=== PATIENT | male | born 1940 | race Caucasian/White ===

== ENCOUNTER → 2017-10-17 | Outpatient (CLI) | payer MEDICARE ==
--- NOTE | 2017-10-17 15:04 | XR ---
EXAMINATION TYPE: XR chest 2V DATE OF EXAM: 10/17/2017 COMPARISON: NONE HISTORY: Shortness of breath TECHNIQUE: Frontal and lateral views of the chest are obtained. FINDINGS: Scattered senescent parenchymal changes noted. Hyperinflation compatible with COPD. No evidence for infiltrate. No evidence for atelectasis. Heart size is stable. Mediastinal structures are stable and grossly unremarkable. No evidence for hilar prominence. Degenerative changes dorsal spine. IMPRESSION: 1. No evidence for acute pulmonary disease.
--- NOTE | 2017-10-17 15:10 | XR ---
EXAMINATION TYPE: XR lumbar spine 2 or 3V DATE OF EXAM: 10/17/2017 CLINICAL HISTORY: pain TECHNIQUE: Three views of the lumbar spine are submitted. COMPARISON: None. FINDINGS: There are 5 lumbar type vertebral bodies identified. The lumbar spine shows satisfactory alignment w ithout evidence of acute fracture or dislocation. Vertebral body heights are within normal limits. Moderate to severe degenerative disc space narrowing at L4-5 and L5-S1. Facet joint arthropathy. The overlying soft tissue appears unremarkable. IMPRESSION: No acute fracture or dislocation is seen in the lumbar spine. ICD 10 NO FRACTURE, INITIAL EVALUATION
--- NOTE | 2017-10-17 15:12 | XR ---
EXAMINATION TYPE: XR cervical spine limited DATE OF EXAM: 10/17/2017 CLINICAL HISTORY: pain TECHNIQUE: 3 views of the cervical spine are submitted. COMPARISON: None. FINDINGS: There is satisfactory in alignment without evidence of acute fracture or dislocation. The pre-vertebral soft tissue appears within normal limits. Moderate degenerative narrowing at C5-6 and C6-7. Ventral and dorsal spondylosis. The C1-C2 articulation is unremarkable on the open mouth view. IMPRESSION: No acute fracture or dislocation is seen in the cervical spine.
== END | disposition home or self-care (01) ==
LOC: RADXRMAIN 13:21
PROVIDERS: ATTEND Family Medicine
DX: R52 Pain, unspecified (principal)
CPT/HCPCS: 71046; 72040; 72100

== ENCOUNTER → 2017-10-18 | Outpatient (CLI) | payer MEDICARE ==
--- NOTE | 2017-10-18 12:16 | USB ---
Reason for exam: clinical finding. Indicated problem(s): pain in the left breast. Physical Findings: Nurse did not find any significant physical abnormalities on exam. US Breast LT Left breast ultrasound includes all four quadrants, the retroareolar region and axilla. Finding demonstrates no cystic or solid lesion seen. These results were verbally communicated with the patient and result sheet given to the patient on 10/18/17. ASSESSMENT: Benign, BI-RAD 2 RECOMMENDATION: Clinical management of the left breast. Manage patient on a clinical basis.
== END | disposition home or self-care (01) ==
LOC: RADUSWWP 09:19
PROVIDERS: ATTEND Family Medicine
DX: N64.4 Mastodynia (principal)

== ENCOUNTER 2018-08-11 03:14 | Observation (INO) | payer MEDICARE ==
[2018-08-11] MEDS ORDERED: NITROGLYCERIN SL TABS 0.4 MG TAB SUBLINGUAL PRN (03:17)
--- NOTE | 2018-08-11 03:40 | ED ---
Chest Pain HPI - General Stated Complaint: Hypertension Time Seen by Provider: 08/11/18 03:16 Source: patient, EMS Mode of arrival: EMS Limitations: no limitations - History of Present Illness Initial Comments: Beto is a pleasant 78 yo male with PMH of CAD and CABG who presents to our ED as a transfer via EMS from an outside facility. Patient reports that earlier today he began having a mild headache and feeling some heaviness in his chest E noted his blood pressure is elevated at which time he went to the emergency department for evaluation. At the outside facility patient had a head CT with no acute findings, was given medications in the blood pressure normalized his EKG was nonischemic and his first troponin was negative. Given the patient's significant history it was decided that he should be transferred to our system facility for evaluation by cardiology. Patient reports that his chest heaviness resolved at the outside facility and is not been having any heaviness since that time. He denies any associated shortness of breath diaphoresis or lightheadedness. He does admit to having a mild headache earlier in the day but reports that has resolved as well. - Related Data Home Medications Medication Instructions Recorded Confirmed Aspirin [Adult Low Dose Aspirin EC] 162 mg PO HS 04/08/16 04/11/16 Carvedilol [Coreg] 12.5 mg PO BID 04/08/16 04/08/16 Clopidogrel [Plavix] 75 mg PO DAILY 04/08/16 04/11/16 Ezetimibe/Simvastatin [Vytorin 1 tab PO QAM 04/08/16 04/08/16 10-40 mg Tablet] Insulin Glargine [Lantus] 55 unit SQ QAM 04/08/16 04/11/16 Niacin [Niacin ER] 2,000 mg PO HS 04/08/16 04/08/16 Telmisartan/Hydrochlorothiazid 1 tab PO QAM 04/08/16 04/08/16 [Telmisartan-Hctz 80-12.5 mg Tb] amLODIPine [Norvasc] 10 mg PO QAM 04/08/16 04/08/16 Allergies Allergy/AdvReac Type Severity Reaction Status Date / Time No Known Allergies Allergy Verified 04/08/16 12:50 Review of Systems ROS Statement: Those systems with pertinent positive or pertinent negative responses have been documented in the HPI. ROS Other: All systems not noted in ROS Statement are negative. EKG Findings - EKG Comments: EKG Findings:: EKG obtained at 3:21 AM, rate is 73 rhythm is sinus there is a leftward axis normal intervals, AZ 162, QRS 102, QTc 469. There is an incomplete right bundle branch block. There are no acute ST elevations or depressions there is no evidence of acute ischemia or infarction. Past Medical History Past Medical History: Diabetes Mellitus, Hyperlipidemia, Hypertension History of Any Multi-Drug Resistant Organisms: None Reported Past Surgical History: Coronary Bypass/CABG, Heart Catheterization With Stent Additional Past Surgical History / Comment(s): CABG, 2003. CATARACTS. BILATERAL EYE SURGERY (DIABETIC) Past Anesthesia/Blood Transfusion Reactions: No Reported Reaction Date of Last Stent Placement:: UNK Past Psychological History: No Psychological Hx Reported Smoking Status: Former smoker Past Alcohol Use History: None Reported Past Drug Use History: None Reported General Exam - General Exam Comments Initial Comments: Physical Exam GENERAL: Patient is well-developed and well-nourished. Patient is nontoxic and well- hydrated and is in no distress. HENT: Normocephalic, Atraumatic. EYES: PERRL, EOMI PULMONARY: Unlabored respirations. No audible rales rhonchi or wheezing was noted. CARDIOVASCULAR: There is a regular rate and rhythm without any murmurs gallops or rubs. Well healed mid sternal incision consistent with history of CABG ABDOMEN: Soft and nontender with normal bowel sounds. SKIN: Skin is clear with no lesions or rashes and otherwise unremarkable. : Deferred NEUROLOGIC: Patient is alert and oriented x3. Moving all extremities spontaneously MUSCULOSKELETAL: Normal extremities with adequate strength and full range of motion. No lower extremity swelling or edema. No calf tenderness. PSYCHIATRIC: Normal psychiatric evaluation. 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 ] Respiratory 18 18 Rate Blood Pressure 145/88 152/87 O2 Sat by Pulse 97 97 Oximetry Chest Pain MDM - [facility] Patient care was discussed with transferring physician patient had a thorough cardiac workup at outside facility as well as a head CT Upon arrival patient is asymptomatic, blood pressure is elevated but not critically so Repeat labs were ordered Patient's PCP was paged for admission Patient admitted with consult to cardiology Disposition Clinical Impression: Chest pain Disposition: ADMITTED IP TO THIS HOSP Condition: Stable Is patient prescribed a controlled substance at d/c from ED?: No
[2018-08-11 03:43] LABS: Basophils # (A) 0.1 k/uL (0-0.2); Basophils % (A) 1 %; Eosinophils # (A) 0.2 k/uL (0-0.7); Eosinophils % (A) 2 %; HCT 46.9 % (39.0-53.0); HGB 15.4 gm/dL (13.0-17.5); Lymphocytes # (A) 1.8 k/uL (1.0-4.8); Lymphocytes % (A) 16 %; MCH 27.8 pg (25.0-35.0); MCHC 32.7 g/dL (31.0-37.0); Mean Platelet Volume 7.4; Monocytes # (A) 0.8 k/uL (0-1.0); Monocytes % (A) 7 %; Neutrophils # (A) 8.1 k/uL (1.3-7.7); Neutrophils % (A) 72 %; Platelet Count 288 k/uL (150-450); RBC 5.52 m/uL (4.30-5.90); RDW 13.8 % (11.5-15.5); WBC 11.3 k/uL (3.8-10.6)
[2018-08-11 03:51] LABS: Calcium 9.3 mg/dL (8.4-10.2); Magnesium 2.1 mg/dL (1.6-2.3); Potassium 3.7 mmol/L (3.5-5.1); Total Bilirubin 0.6 mg/dL (0.2-1.3); Total Protein 7.1 g/dL (6.3-8.2)
[2018-08-11 03:59] LABS: INR 0.9 (<1.2); Partial Thromboplastin Time 23.9 sec (22.0-30.0); Prothrombin Time 9.5 sec (9.0-12.0)
[2018-08-11 04:16] LABS: Creatine Kinase MB 1.3 ng/mL (0.0-2.4); Troponin I 0.029 ng/mL (0.000-0.034)
[2018-08-11] MEDS ORDERED: ENALAPRILAT 1.25 MG/ML 1 ML VIAL IVP PRN ×2 (04:32→04:36)
[2018-08-11 04:37] VITALS: BMI 29.5
[2018-08-11 06:45] LABS: Glucose,Whole Blood 120 mg/dL (75-99)
[2018-08-11 11:41] LABS: Creatine Kinase MB 0.8 ng/mL (0.0-2.4)
[2018-08-11] MEDS: INSULIN ASPART (NovoLOG) 100 UNIT/ML VIAL SQ SCH ×4 (11:47→21:07)
[2018-08-11 11:52] LABS: Troponin I 0.04 ng/mL (0.000-0.034)
--- NOTE | 2018-08-11 11:52 | CONS ---
CONSULTATION Mr. Leos is a 78-year-old gentleman who is seen for the cardiac evaluation. The patient's electronic medical records as well as the old charts are reviewed. The patient has a known history of coronary artery disease with coronary artery bypass surgery. He had a cardiac catheterization done in 2016 which showed a patent graft. The patient has not been followed with Dr. Munoz regularly. This patient gives a history that he started having a headache and then he had heaviness in the chest. He went to [facility] where his blood pressure was in the range of 200. He was given medications and the blood pressure stabilized. EKG did not show any acute ischemic changes, but because of his history, patient was transferred over here. He is feeling fairly well. The patient was moderately active physically and he is not having any exertional chest discomfort, usually. PAST MEDICAL HISTORY: Past medical history includes a history of coronary artery bypass surgery in 2004, cardiac catheterization done in 2016. The patient has a history of hypertension, hyperlipidemia, and diabetes. MEDICATIONS: Home medications include amlodipine 10 mg daily. Micardis, niacin, insulin, Vytorin, Coreg and Plavix and baby aspirin. PHYSICAL EXAMINATION: Physical examination in the emergency room here, patient's blood pressure was 152/87 mmHg, oxygen saturation was 97%. HEENT examination is negative. Neck is supple. There is no increase in jugular venous pressure. Both the carotid pulses are felt. There is no bruit. Chest is symmetrical. Heart the PMI is not felt. First and second heart sounds are normal. There is no evidence of any murmur. Lungs are clinically clear to auscultation and percussion. Abdomen is soft. Liver and spleen are not enlarged. Bowel sounds are heard. Extremities: Peripheral pulses are 2+. LABORATORY DATA: EKG shows right bundle branch block with left anterior hemiblock versus old inferior wall myocardial infarction. The patient's initial troponin at the [facility] was normal. First troponin done here is 0.029. The patient's creatinine is 1.10. FINAL IMPRESSION: Hypertension and headache, rule out non ST-segment elevation myocardial infarction. Patient's 1st troponin done here is abnormal. We will add and do serial troponin, if the troponins are suggestive of non ST-segment elevation myocardial infarction, patient will need further evaluation with a cardiac catheterization Thank you for the consultation. MMODL / IJN: [id number] /
[2018-08-11] MEDS: LOSARTAN 50 MG TAB PO SCH (11:53)
[2018-08-11] MEDS: amLODIPine 10 MG TAB PO SCH (11:53)
[2018-08-11] MEDS: CLOPIDOGREL 75 MG TAB PO SCH (11:53)
[2018-08-11] MEDS: CARVEDILOL 12.5 MG TAB PO SCH ×2 (11:53→16:38)
[2018-08-11] MEDS: ATORVASTATIN 20 MG TAB PO SCH (11:53)
[2018-08-11 11:58] LABS: Glucose,Whole Blood 125 mg/dL (75-99)
[2018-08-11] MEDS: HYDROCHLOROTHIAZIDE 12.5 MG CAP PO SCH (12:20)
[2018-08-11] MEDS: EZETIMIBE 10 MG TAB PO SCH (12:20)
--- NOTE | 2018-08-11 14:36 | ECHOF ---
Referral Reason:cp MEASUREMENTS -------- HEIGHT: 175.3 cm WEIGHT: 90.7 kg BP: 149/64 IVSd: 1.2 cm (0.6 - 1.1) LVIDd: 5.3 cm (3.9 - 5.3) LVPWd: 1.1 cm (0.6 - 1.1) EDV(Teich): 135 ml IVSs: 1.5 cm LVIDs: 3.5 cm LVPWs: 1.5 cm ESV(Teich): 50 ml EF(Teich): 63 % %FS: 35 % SV(Teich): 86 ml RVIDd: 3.3 cm (< 3.3) LALs A4C: 6.3 cm LAAs A4C: 21.1 cm LAESV A-L A4C: 60 ml LAESV MOD A4C: 59 ml LALs A2C: 5.3 cm LAAs A2C: 20.0 cm LAESV A-L A2C: 64 ml LAESV MOD A2C: 63 ml LAESV(A-L): 68 ml LAESV Index (A-L): 32.85 ml/m Ao Diam: 3.8 cm (2.0 - 3.7) LA Diam: 3.4 cm (2.7 - 3.8) AV Cusp: 1.7 cm (1.5 - 2.6) EPSS: 0.4 cm MV E Radames: 0.50 m/s MV DecT: 410 ms MV Dec Eastland: 1.2 m/s MV A Radames: 0.64 m/s MV E/A Ratio: 0.79 AV Vmax: 1.29 m/s AV maxP.67 mmHg TR Vmax: 2.07 m/s TR maxP.17 mmHg RAP: 5.00 mmHg RVSP: 22.17 mmHg MV EF SLOPE: 115.99 mm/s (70 - 150) MV EXCURSION: 1.99 cm (> 18.000) FINDINGS -------- Sinus rhythm. This was a technically adequate study. The left ventricular size is normal. There is mild concentric left ventricular hypertrophy. Overa ll left ventricular systolic function is normal with, an EF between 55 - 60 %. The right ventricle is normal in size. LA is midly dilated 29-33ml/m2. The right atrium is normal in size. Aortic valve is trileaflet and is mildly thickened. There is no evidence of aortic regurgitation. There is no evidence of aortic stenosis. The mitral valve leaflets are mildly thickened. There is trace to mild mitral regurgitation. Trace tricuspid regurgitation present. Right ventricular systolic pressure is normal at < 35 mmHg. There is no evidence of pulmonary hypertension. The pulmonic valve was not well visualized. The aortic root size is normal. Normal inferior vena cava with normal inspiratory collapse consistent with estimated right atrial pre ssure of 5 mmHg. There is no pericardial effusion. CONCLUSIONS -------- 1. Sinus rhythm. 2. This was a technically adequate study. 3. The left ventricular size is normal. 4. There is mild concentric left ventricular hypertrophy. 5. Overall left ventricular systolic function is normal with, an EF between 55 - 60 %. 6. The right ventricle is normal in size. 7. LA is midly dilated 29-33ml/m2. 8. Aortic valve is trileaflet and is mildly thickened. 9. The mitral valve leaflets are mildly thickened. 10. There is trace to mild mitral regurgitation. 11. Trace tricuspid regurgitation present. 12. Right ventricular systolic pressure is normal at < 35 mmHg. 13. There is no evidence of pulmonary hypertension. 14. The pulmonic valve was not well visualized. 15. The aortic root size is normal. 16. There is no pericardial effusion. REGULATORY LEAD: Todd Avila RDCS
[2018-08-11 16:35] LABS: Glucose,Whole Blood 432 mg/dL (75-99)
[2018-08-11 16:54] LABS: Creatine Kinase MB 0.8 ng/mL (0.0-2.4); Troponin I 0.019 ng/mL (0.000-0.034)
[2018-08-11 20:28] LABS: Glucose,Whole Blood 360 mg/dL (75-99)
[2018-08-11] MEDS ORDERED: NON-FORMULARY DRUG (Aspirin [Adult Low Dose Aspirin Ec] 162 MG) PO SCH (21:00)
[2018-08-11 22:14] LABS: Cholesterol 253 mg/dL (<200); HDL Cholesterol 27 mg/dL (40-60); Triglycerides 445 mg/dL (<150)
[2018-08-12 05:53] LABS: Glucose,Whole Blood 303 mg/dL (75-99)
[2018-08-12] MEDS: INSULIN ASPART (NovoLOG) 100 UNIT/ML VIAL SQ SCH ×4 (06:23→20:16)
[2018-08-12] MEDS: CARVEDILOL 12.5 MG TAB PO SCH ×2 (06:23→16:58)
--- NOTE | 2018-08-12 08:11 | HP ---
HISTORY AND PHYSICAL CHIEF COMPLAINT: 78-year-old white male came to the hospital with some chest pain. HISTORY OF PRESENT ILLNESS: 78-year-old white male who stopped taking blood pressure medicines 3 days ago for unclear reasons, possibly that he is depressed per nursing. Anyway he came to hospital due to chest pain and heaviness in his chest. He was found to have a second troponin elevated. Wait for Cardiology and echo reports. Chest x-ray is negative. PAST MEDICAL HISTORY: Hypertension acceleration has been treated with appropriate medications. MEDICATIONS: Home medicines. Please see orders. PAST SURGICAL HISTORY: Surgical history see old chart. ALLERGIES: Allergies see old chart. REVIEW OF SYSTEMS: Fourteen point review of systems negative except for mentioned in HPI. PHYSICAL EXAMINATION: VITAL SIGNS: Reviewed. Cardiovascular S1, S2. LUNGS: Clear. GI soft. Hematology negative Homans. Psych fair mood and affect. NEUROLOGIC: Alert and orient x3. Ophthalmological pupils equal, round, react to light and accommodation. ASSESSMENT: 1. Elevated troponin. 2. Chest tightness. 3. Suspect angina. 4. Hypertension acceleration. 5. Possible depression. 6. Rule out myocardial infarction. Continue current treatment. Cardiology consult. Echo. Hypertension control. MMODL / IJN: [id number] /
[2018-08-12] MEDS: EZETIMIBE 10 MG TAB PO SCH (08:29)
[2018-08-12] MEDS: CLOPIDOGREL 75 MG TAB PO SCH (08:29)
[2018-08-12] MEDS: amLODIPine 10 MG TAB PO SCH (08:29)
[2018-08-12] MEDS: ASPIRIN 325 MG TAB PO SCH (08:29)
[2018-08-12] MEDS: ATORVASTATIN 20 MG TAB PO SCH (08:29)
[2018-08-12] MEDS: HYDROCHLOROTHIAZIDE 12.5 MG CAP PO SCH (10:09)
[2018-08-12] MEDS: LOSARTAN 50 MG TAB PO SCH (10:09)
[2018-08-12] MEDS ORDERED: INSULIN ASPART (NovoLOG) 100 UNIT/ML VIAL SQ ONE (11:15)
[2018-08-12 11:31] LABS: Glucose,Whole Blood 504 mg/dL (75-99)
[2018-08-12] MEDS: INSULIN DETEMIR (LEVEMIR) 100 UNIT/ML SYR SQ SCH (11:49)
[2018-08-12] MEDS ORDERED: ASPIRIN 325 MG TAB PO STA (12:30)
[2018-08-12] MEDS ORDERED: NITROGLYCERIN SL TABS 0.4 MG TAB SUBLINGUAL PRN (12:30)
[2018-08-12] MEDS ORDERED: SODIUM CHLORIDE 0.9% 1,000 ML in EMPTY BAG 1 BAG IV ONE (12:30)
[2018-08-12] MEDS ORDERED: ALPRAZolam 0.5 MG TAB PO PRN (12:30)
[2018-08-12] MEDS ORDERED: ATORVASTATIN 80 MG TAB PO STA (12:30)
[2018-08-12] MEDS ORDERED: ALPRAZolam 0.25 MG TAB PO PRN (12:30)
--- NOTE | 2018-08-12 14:23 | P.PN ---
Subjective Progress Note Date: 08/12/18 This is a 78-year-old gentleman seen in consultation yesterday by Dr. VC Elizondo. He had a cardiac catheterization performed in 2016 which revealed a patent graft, he gives history that he's been having intermittent chest heaviness. His EKG did not reveal any ischemic change but because of his history he was transferred here. Patient does have history of hypertension, hyperlipidemia, diabetes. He was noted to have mild abnormality in his troponins. For this reason patient was advised to undergo cardiac catheterization, the risks and benefits were explained to the patient and his in detail, this will be performed tomorrow by Dr. Glasgow. Blood pressure 128/60 with a heart rate in the 50s, 97% on room air. Objective - Vital Signs Vital signs: Vital Signs Temp 97.1 F L 08/12/18 08:00 Pulse 56 L 08/12/18 12:00 Resp 18 08/12/18 12:00 BP 129/69 08/12/18 12:00 Pulse Ox 97 08/12/18 12:00 Intake & Output 08/11/18 08/12/18 08/12/18 18:59 06:59 18:59 Intake Total 240 480 Balance 240 480 Intake: Oral 240 480 Other: Voiding Method Toilet Toilet Urinal # Voids 1 - Exam PHYSICAL EXAMINATION: GENERAL: 78-year-old gentleman in no acute distress at the time of my examination HEENT: Head is atraumatic, normocephalic. Pupils equal, round. Sclera anicteric. Conjunctiva are clear. Mucous membranes of the mouth are moist. Neck is supple. There is no elevated jugular venous pressure.] bruit is heard. HEART EXAMINATION: Heart S1, S2 normal. No murmur or gallop heard. CHEST EXAMINATION: Lungs are clear to auscultation and precussion. No chest wall tenderness is noted on palpation or with deep breathing. ABDOMEN: Soft, nontender. Bowel sounds are heard. No organomegaly noted. EXTREMITIES: 2+ peripheral pulses with no evidence of peripheral edema and no calf tenderness noted. NEUROLOGIC patient is awake, alert and oriented 3 . . - Labs CBC & Chem 7: 08/11/18 03:30 08/11/18 03:30 Labs: Abnormal Lab Results - Last 24 Hours (Table) 08/11/18 08/11/18 08/11/18 Range/Units 03:30 15:59 16:14 D-Dimer 0.76 H (<0.60) mg/L FEU POC Glucose (mg/dL) 432 H (75-99) mg/dL Triglycerides 445 H (<150) mg/dL Cholesterol 253 H (<200) mg/dL HDL Cholesterol 27 L (40-60) mg/dL 08/11/18 08/12/18 08/12/18 Range/Units 20:27 05:51 11:09 D-Dimer (<0.60) mg/L FEU POC Glucose (mg/dL) 360 H 303 H 504 H (75-99) mg/dL Triglycerides (<150) mg/dL Cholesterol (<200) mg/dL HDL Cholesterol (40-60) mg/dL Assessment and Plan Plan: Assessment and plan #1 hypertension #2 possible non-Q-wave myocardial infarction. Patient will be scheduled to undergo cardiac catheterization tomorrow with Dr. Glasgow. #3 known history of coronary artery disease with prior bypass surgery #4 hypertension #5 diabetes #6 hyperlipidemia Plan Cardiac catheterization tomorrow with Dr. Glasgow. Further recommendations will be based on these findings and patient's clinical course. DNP note has been reviewed, I agree with a documented findings and plan of care. Patient was seen and examined.
[2018-08-12 16:24] LABS: Glucose,Whole Blood 252 mg/dL (75-99)
--- NOTE | 2018-08-12 18:35 | PN ---
PROGRESS NOTE SUBJECTIVE: This is a white male who came in with elevated troponin and chest pain. He is much better. His blood pressure is under better control. Sugar is up to 500 today. He has not been on his insulin in a few days. One out of three troponins was high. Dr. Munoz apparently is going to do a heart catheterization on him as he has a history of heart disease. Diabetes will continue to be controlled with current medicines. CARDIOVASCULAR: S1, S2. LUNGS: Transmitted upper sounds. GI: Soft. HEMATOLOGY: Negative Homans. 45, cholesterol 253, HDL 27. ASSESSMENT: 1. Unstable angina. 2. Elevated troponin. 3. Hypertension acceleration, doubt myocardial infarction after normal echo. 4. Diabetes. 5. Dyslipidemia. Cardiac catheterization and possible discharge home. Insulin and blood pressure medicines have been ordered. MMODL / IJN: [id number] /
[2018-08-12 20:41] LABS: Glucose,Whole Blood 254 mg/dL (75-99)
[2018-08-13] MEDS: ATORVASTATIN 20 MG TAB PO SCH (05:22)
[2018-08-13] MEDS: ASPIRIN 325 MG TAB PO SCH (05:22)
[2018-08-13 05:35] LABS: Glucose,Whole Blood 310 mg/dL (75-99)
[2018-08-13] MEDS: INSULIN ASPART (NovoLOG) 100 UNIT/ML VIAL SQ SCH ×4 (06:35→21:09)
[2018-08-13] MEDS: CARVEDILOL 12.5 MG TAB PO SCH ×2 (06:35→17:34)
[2018-08-13] MEDS: LOSARTAN 50 MG TAB PO SCH (06:36)
[2018-08-13] MEDS: CLOPIDOGREL 75 MG TAB PO SCH (06:36)
[2018-08-13] MEDS: EZETIMIBE 10 MG TAB PO SCH (06:36)
[2018-08-13] MEDS: amLODIPine 10 MG TAB PO SCH (06:36)
[2018-08-13] MEDS ORDERED: VERAPAMIL 2.5 MG/ML 2 ML AMP ONE (07:30)
[2018-08-13] MEDS ORDERED: HEPARIN SODIUM 1,000 UN/ML (10ML VL) ONE (07:30)
[2018-08-13] MEDS ORDERED: LIDOCAINE 1% INJ 10MG/ML (20 ML MDV) ONE (07:30)
[2018-08-13] MEDS ORDERED: MIDAZOLAM 2 MG/2 ML VIAL IVP ONE (08:09)
[2018-08-13] MEDS ORDERED: LIDOCAINE 1% INJ 10MG/ML (20 ML MDV) SQ ONE (08:12)
[2018-08-13] MEDS ORDERED: IV FLUID CONTINUATION 1,000 ML IV ONE (08:25)
[2018-08-13] MEDS ORDERED: IOPAMIDOL-370 125ML BTL INJ ONE (08:37)
[2018-08-13] MEDS ORDERED: RX INFO: IV CONTRAST WAS GIVEN 1 EACH MISC MISCELLANE PRN (08:40)
[2018-08-13] MEDS ORDERED: SODIUM CHLORIDE 0.9% 1,000 ML IV SCH (08:45)
[2018-08-13] MEDS: HYDROCHLOROTHIAZIDE 12.5 MG CAP PO SCH (09:23)
[2018-08-13] MEDS: INSULIN DETEMIR (LEVEMIR) 100 UNIT/ML SYR SQ SCH (09:23)
--- NOTE | 2018-08-13 09:27 | CC ---
CARDIAC CATHETERIZATION REPORT DATE OF SERVICE: August 13, 2018 PERFORMING PHYSICIAN: Lukasz Munoz MD, cork wirer. PROCEDURE PERFORMED: 1. Selective left and right coronary angiogram. 2. GRANT to LAD angiogram. 3. SVG to diagonal angiogram. 4. SVG to OM angiogram. 5. SVG to RCA angiogram. 6. Left heart catheterization. 7. Selective right common iliac artery angiogram. 8. Gradient measurement across the right common iliac artery. INDICATION: This is a pleasant 78-year-old gentleman who has known history of coronary artery disease with the last heart catheterization in 2016 showing severe triple-vessel coronary artery disease with patent GRANT to LAD, patent SVG to diagonal, patent SVG to OM, and patent SVG to RCA. He presented to the hospital complaining of chest discomfort and was seen by Dr. Elizondo who recommended proceeding with a heart catheterization giving his symptoms of chest discomfort, which was quite concerning for angina. APPROACH: Right common femoral artery. COMPLICATION: None. LEVEL OF SEDATION: Moderate with sedation length of 28 minutes. PROCEDURE DESCRIPTION: After obtaining an informed consent, the patient was brought to the cardiac tree tapping laborer. The right common femoral artery was cannulated using micropuncture technique, the micropuncture wire passed easily then I placed a 6-Moroccan sheath 11 cm in the right common iliac artery. I did have hard time advancing J-wire across the right common iliac artery by its ostium and I was able to cross it using a Glidewire 0.035. After that, I did exchange my 11 cm 6-Moroccan sheath into 23 cm 6-Moroccan sheath using 0.035 Glidewire because I had a hard time advancing JL4 across the ostial of the right common iliac artery. After that I did selective left and right coronary angiogram using JL4 and JR4 catheters. GRANT to LAD angiogram, SVG to diagonal angiogram, SVG to RCA angiogram, and SVG to OM angiogram, were performed using the JR4 catheter. Left heart catheterization was performed using JR4 catheter which flipped into the LV then I did pullback across aortic valve. Finally I did selective right common iliac artery angiogram and gradient measurement across the right common iliac artery by the end of the procedure. SELECTIVE CORONARY ANGIOGRAM: 1. The left main appeared to be heavily calcified with critical disease distally. It bifurcates into left circumflex and left anterior descending artery. 2. The left circumflex is a large caliber vessel. It is a nondominant vessel. The left circumflex gives rise into a large OM in the midportion, which seems to be subtotally occluded. The left circumflex continues after that as a small-caliber vessel in the AV groove. 3. The LAD is 100% occluded by its ostium. 4. The RCA has a critical disease in the mid and distal portion. CORONARY BYPASS ANGIOGRAM: 1. The GRANT to LAD is patent. The LAD distal to the GRANT anastomosis has a lesion appeared to be in the range of 50%. 2. The SVG to diagonal is patent. 3. SVG to OM is patent. 4. SVG to RCA is patent. HEMODYNAMICS: The left ventricular end-diastolic pressure was around 8 mmHg without significant gradient across the aortic valve. SELECTIVE ILIAC ANGIOGRAM: The selective right iliac angiogram was performed in the MADRID projection and using a power injection. The ostial of the right common iliac artery has a lesion appeared to be in the range of 99%. The gradient was 57 mmHg. CONCLUSION: 1. Severe triple-vessel coronary artery disease. 2. Patent GRANT to LAD. The LAD distal to the GRANT anastomosis has 50% disease. 3. Patent SVG to diagonal. 4. Patent SVG to OM. 5. Patent SVG to RCA. 6. Critical disease involving the right ostial of the right common iliac artery. POSTPROCEDURE MANAGEMENT: 1. At this point maximize medical treatment. 2. IRRIGATION EQUIPMENT MECHANIC of the right common iliac artery if the patient does have symptoms of intermittent claudication. MMODL / IJN: [id number] /
--- NOTE | 2018-08-13 09:27 | LTR ---
August 13, 2018 Re: Beto Leos Dear Dr. Moore: Mr. Beto Leos underwent a heart catheterization and that revealed severe triple- vessel coronary artery disease, but patent bypasses. I did recommend maximized medical treatment and follow up with the patient. Thank you for allowing us to participate in his care and please do not hesitate to call if you have any question or concern. Sincerely, MD GEORGE Edwards / DAGOBERTO: [id number] /
[2018-08-13 11:38] LABS: Glucose,Whole Blood 237 mg/dL (75-99)
[2018-08-13 17:31] LABS: Glucose,Whole Blood 393 mg/dL (75-99)
[2018-08-13 21:08] LABS: Glucose,Whole Blood 236 mg/dL (75-99)
--- NOTE | 2018-08-13 23:48 | PN ---
PROGRESS NOTE This patient is a white male who was admitted to the hospital for catheterization which showed normal stents, normal bypass grafts without any significant obstruction to the patent bypass grafts. There was some question if he had some obstruction in his right leg. He is cleared for discharge for medical management of his triple-vessel disease due to patent anastomoses. He possibly has critical disease of the right ostium of the right common iliac artery. If he gets symptoms as an outpatient, he might get a thrombectomy of the right leg down the road if he has any intermittent claudication. Otherwise we will continue to monitor him. Discharge home in the morning. MMODL / IJN: [id number] /
[2018-08-14] MEDS: INSULIN ASPART (NovoLOG) 100 UNIT/ML VIAL SQ SCH (06:31)
[2018-08-14] MEDS: CARVEDILOL 12.5 MG TAB PO SCH (06:37)
[2018-08-14 06:45] LABS: Glucose,Whole Blood 95 mg/dL (75-99)
[2018-08-14 07:43] VITALS: BP 144/68; PULSE 58; RESP 14; TEMP 98.2
[2018-08-14] MEDS: LOSARTAN 50 MG TAB PO SCH (08:05)
[2018-08-14] MEDS: ATORVASTATIN 20 MG TAB PO SCH (08:05)
[2018-08-14] MEDS: ASPIRIN 325 MG TAB PO SCH (08:05)
[2018-08-14] MEDS: EZETIMIBE 10 MG TAB PO SCH (08:05)
[2018-08-14] MEDS: amLODIPine 10 MG TAB PO SCH (08:06)
[2018-08-14] MEDS: HYDROCHLOROTHIAZIDE 12.5 MG CAP PO SCH (08:06)
[2018-08-14] MEDS: CLOPIDOGREL 75 MG TAB PO SCH (08:06)
[2018-08-14] MEDS: INSULIN DETEMIR (LEVEMIR) 100 UNIT/ML SYR SQ SCH (08:32)
--- NOTE | 2018-08-22 22:00 | DS ---
DISCHARGE SUMMARY DATE OF ADMISSION: 08/11/2018 DATE OF DISCHARGE: 08/14/2018 DISCHARGE MEDICATIONS: 1. Januvia 100 mg daily. 2. Singulair 10 mg daily. 3. Namenda 10 mg daily. 4. Levemir 53 units subcutaneously daily. 5. Hygroton 25 mg daily. 6. Xanax 0.25 q.6 hours. 7. Amlodipine 10 mg daily. 8. Aspirin 325 daily. 9. Lipitor 20 mg daily. 10.Carvedilol 12.5 b.i.d. 11.Plavix 75 mg daily. 12.Zetia 10 mg daily. 13.Cozaar 150 daily. 14.Nitroglycerin sublingually daily. DISCHARGE DIAGNOSES: 1. Hypertension acceleration. 2. Atypical chest pain. Heart catheterization was performed. He had a possible non-Q-wave myocardial infarction, although I do not believe he did have one. Heart catheterization showed no ischemic disease. He had severe hypertensive acceleration with some hypertensive encephalopathy, diabetes mellitus. Patient is clear once medications were reviewed and altered. His diabetes is under better control. Home medications adjusted. He was discharged home, cleared by Cardiology. MMODL / IJN: [id number] /
== END 2018-08-14 10:05 | disposition home or self-care (01) ==
LOC: EC 03:14 → 1SOBS 03:21 → INTOOBSV 13:16 → OBSVTOIN 13:16 → 3SCARD 13:48 → UNDODISIN 08-14 10:05
PROVIDERS: ADMIT Family Medicine; ATTEND Family Medicine
PROC: B2111ZZ Fluoroscopy of Multiple Coronary Arteries using Low Osmolar Contrast (ICD-10-PCS; 2018-08-13)
PROC: B2151ZZ Fluoroscopy of Left Heart using Low Osmolar Contrast (ICD-10-PCS; 2018-08-13)
PROC: B41C1ZZ Fluoroscopy of Pelvic Arteries using Low Osmolar Contrast (ICD-10-PCS; 2018-08-13)
PROC: 4A023N7 Measurement of Cardiac Sampling and Pressure, Left Heart, Percutaneous Approach (ICD-10-PCS; principal; 2018-08-13 07:51)
PROC: B2131ZZ Fluoroscopy of Multiple Coronary Artery Bypass Grafts using Low Osmolar Contrast (ICD-10-PCS; 2018-08-13 07:51)
DX: I25.110 Atherosclerotic heart disease of native coronary artery with unstable angina pectoris (principal); I25.82 Chronic total occlusion of coronary artery; E11.9 Type 2 diabetes mellitus without complications; E78.5 Hyperlipidemia, unspecified; I10 Essential (primary) hypertension; I67.4 Hypertensive encephalopathy; R77.8 Other specified abnormalities of plasma proteins; Z79.02 Long term (current) use of antithrombotics/antiplatelets; Z79.4 Long term (current) use of insulin; Z79.82 Long term (current) use of aspirin; Z79.899 Other long term (current) drug therapy; Z87.891 Personal history of nicotine dependence; Z95.1 Presence of aortocoronary bypass graft; Z95.5 Presence of coronary angioplasty implant and graft
CPT/HCPCS: 99285; 94760 ×2; 93005; 93306; 93459; 75710; 85379; 83880; 80061; 80053; 82550; 82553; 83735; 84484; 85025; 85610; 85730; G0378 ×5; C1769 ×3; C1894 ×2; J2250; J2001; Q9967

== ENCOUNTER 2018-09-28 07:37 | Day surgery (SDC) | payer MEDICARE ==
[2018-09-27 09:35] VITALS: BMI 26.6
[~2018-09-28 07:37] MED LIST: SODIUM CHLORIDE 0.9% 1,000 ML in EMPTY BAG 1 BAG IV ONE
[2018-09-28] MEDS ORDERED: ASPIRIN 325 MG TAB PO ONE (08:00)
[2018-09-28] MEDS: amLODIPine 5 MG TAB PO STA ×2 (08:05→08:21)
[2018-09-28 08:10] LABS: Glucose,Whole Blood 78 mg/dL (75-99)
[2018-09-28] MEDS ORDERED: CARVEDILOL 12.5 MG TAB PO STA (08:13)
[2018-09-28] MEDS ORDERED: LOSARTAN 50 MG TAB PO STA (08:13)
[2018-09-28 08:16] LABS: Basophils # (A) 0.1 k/uL (0-0.2); Basophils % (A) 0 %; Eosinophils # (A) 0.2 k/uL (0-0.7); Eosinophils % (A) 2 %; HCT 40.7 % (39.0-53.0); HGB 13.5 gm/dL (13.0-17.5); Lymphocytes # (A) 1.2 k/uL (1.0-4.8); Lymphocytes % (A) 9 %; MCH 27.3 pg (25.0-35.0); MCHC 33.2 g/dL (31.0-37.0); MCV 82.2 fL (80.0-100.0); Mean Platelet Volume 9.3; Monocytes # (A) 1.1 k/uL (0-1.0); Monocytes % (A) 8 %; Neutrophils # (A) 10.5 k/uL (1.3-7.7); Neutrophils % (A) 78 %; Platelet Count 276 k/uL (150-450); RBC 4.94 m/uL (4.30-5.90); RDW 15.1 % (11.5-15.5); WBC 13.3 k/uL (3.8-10.6)
[2018-09-28 08:25] LABS: Potassium 4.6 mmol/L (3.5-5.1)
[2018-09-28] MEDS ORDERED: MIDAZOLAM 2 MG/2 ML VIAL IV ONE (08:47)
[2018-09-28] MEDS: fentaNYL (PF) 50 MCG/ML 2 ML AMP IV ONE ×2 (08:47→09:21)
[2018-09-28] MEDS ORDERED: LIDOCAINE 1% INJ 10MG/ML (20 ML MDV) SQ ONE (08:52)
[2018-09-28] MEDS ORDERED: IOPAMIDOL-250 100ML BTL INTRAARTER ONE ×2 (09:12→09:45)
[2018-09-28] MEDS ORDERED: IOPAMIDOL-250 50ML BTL INTRAARTER ONE (09:13)
[2018-09-28] MEDS ORDERED: NITROGLYCERIN SL TABS 0.4 MG TAB SUBLINGUAL PRN (09:37)
[2018-09-28] MEDS ORDERED: SODIUM CHLORIDE 0.9% 1,000 ML IV SCH (09:45)
--- NOTE | 2018-09-28 09:56 | IR ---
EXAMINATION TYPE: IR captain/airline pilot femoral popliteal DATE OF EXAM: 09/28/2018 COMPARISON: NONE HISTORY: Fluoroscopy time. Fluoroscopy was provided to the referring clinician.
--- NOTE | 2018-09-28 10:13 | LTR ---
September 28, 2018 Re: Beto Leos Dear Dr. Moore: Mr. Beto Leos underwent successful balloon angioplasty and stenting of the right common iliac artery with good angiographic results. I want to thank you for allowing me to participate in his care and please do not hesitate to call if you have any question or concern. Sincerely, MD GEORGE Edwards / DAGOBERTO: [id number] /
--- NOTE | 2018-09-28 10:28 | AN ---
ANGIOGRAPHY REPORT DATE OF SERVICE: 09/28/2018 PERFORMING PHYSICIAN: Lukasz Munoz MD, Slime Plant Operator. PROCEDURE PERFORMED: 1. Selective right common iliac artery angiogram. 2. Balloon angioplasty of the right common iliac artery using 7 x 30 mm balloon. 3. Successful stenting of the right common iliac artery using a 9 x 30 mm balloon expandable stent with an excellent angiographic result and reduction of stenosis from 99% to 0%. 4. An abdominal aortogram. 5. Bilateral lower extremities runoff. INDICATION: This is a 78-year-old gentleman who was experiencing symptoms of right leg intermittent claudication. He underwent a heart catheterization a few weeks ago for acute non ST elevation myocardial infarction and he was found to have a tight lesion involving the right iliac artery. Because of that, he was brought today to undergo a PATIENT SERVICE SPECIALIST of the right common iliac artery as well as an abdominal aortogram and bilateral lower extremities runoff. APPROACH: Right common femoral artery. COMPLICATION: None LEVEL OF SEDATION: Moderate with sedation length of 40 minutes. PROCEDURE DESCRIPTION: After obtaining an informed consent, the patient was brought to the cardiac lab analyst. The right common femoral artery was cannulated using micropuncture technique, the micropuncture wire passed easily, then I placed a 7-British 23 cm Brite tip sheath in the right common iliac artery. I did selective right common iliac artery angiogram and then I did an abdominal aortogram and bilateral lower extremities runoff using 5-British pigtail catheter which was initially placed at the level of the renal arteries and it was pulled into above the bifurcation of the aorta to right and left common iliac arteries. After that, I did an angioplasty of the right common iliac artery. Please see a separate paragraph for that. SELECTIVE PERIPHERAL ANGIOGRAM: 1. The abdominal aorta appeared to have mild disease only and seems to be calcified. 2. COMMON ILIAC ARTERY: The right common iliac artery is calcified with a critical lesion. The left common iliac artery appeared to be angiographically normal. 3. INTERNAL ILIAC ARTERIES: The right and left internal iliac arteries are patent. 4. EXTERNAL ILIAC ARTERIES: The right and left externals are angiographically normal. 5. COMMON FEMORAL ARTERIES: The right and left common femoral arteries are angiographically normal. 6. PROFUNDA: The right and left profunda are patent. 7. SFA: The right and left SFA are patent. 8. POPLITEAL: The right and left popliteal are patent. 9. BELOW THE KNEE: There are 3 vessel runoff below the knee bilaterally. PATIENT SERVICE SPECIALIST OF THE RIGHT ILIAC ARTERY: Anticoagulation was initiated using heparin and the patient was given 10,000 units of heparin IV. Subsequently, I did cross the critical lesion in the right common iliac artery using a 0.35 [place] Advantage wire. I did balloon angioplasty using 7 mm balloon before I deployed 9 x 27 mm balloon expandable stent where the stent was positioned under fluoroscopy guidance and deployed under 12 atmospheres for 20 seconds with the following angiogram showing excellent angiographic results and reduction of stenosis from 99% to 0%. CONCLUSION: 1. Successful stenting critical lesion in the right common iliac artery with an excellent angiographic results and reduction of stenosis from 99% to 0% using a balloon expandable stent. 2. No residual disease was identified in the lower extremities. POSTPROCEDURE MANAGEMENT: 1. Dual anti-platelet therapy. 2. Risk factors modifications. 3. Follow up with the patient. MMODL / IJN: [id number] /
[2018-09-28 16:43] LABS: Glucose,Whole Blood 147 mg/dL (75-99)
[2018-09-28] MEDS: CARVEDILOL 12.5 MG TAB PO SCH (17:49)
[2018-09-28] MEDS: amLODIPine 5 MG TAB PO SCH (20:02)
[2018-09-28 20:55] VITALS: RESP 18
[2018-09-28 21:21] LABS: Glucose,Whole Blood 209 mg/dL (75-99)
[2018-09-29 05:45] LABS: Glucose,Whole Blood 217 mg/dL (75-99)
[2018-09-29 07:52] VITALS: BP 142/65; PULSE 63; TEMP 98.5
[2018-09-29 07:58] LABS: Basophils # (A) 0.1 k/uL (0-0.2); Basophils % (A) 1 %; Eosinophils # (A) 0.2 k/uL (0-0.7); Eosinophils % (A) 2 %; HCT 38.3 % (39.0-53.0); HGB 12.6 gm/dL (13.0-17.5); Lymphocytes # (A) 1.2 k/uL (1.0-4.8); Lymphocytes % (A) 12 %; MCH 27.9 pg (25.0-35.0); MCV 84.7 fL (80.0-100.0); Mean Platelet Volume 8.1; Monocytes % (A) 9 %; Neutrophils # (A) 7.5 k/uL (1.3-7.7); Neutrophils % (A) 73 %; Platelet Count 252 k/uL (150-450); RBC 4.52 m/uL (4.30-5.90); RDW 14.8 % (11.5-15.5); WBC 10.3 k/uL (3.8-10.6)
[2018-09-29 08:15] LABS: Calcium 8.8 mg/dL (8.4-10.2); Potassium 5.1 mmol/L (3.5-5.1)
[2018-09-29] MEDS: amLODIPine 5 MG TAB PO SCH (08:38)
[2018-09-29] MEDS: CARVEDILOL 12.5 MG TAB PO SCH (08:38)
[2018-09-29] MEDS ORDERED: LINAGLIPTIN 5 MG TABLET PO SCH (09:00)
[2018-09-29] MEDS ORDERED: amLODIPine 10 MG TAB PO SCH (09:00)
[2018-09-29] MEDS ORDERED: ATORVASTATIN 10 MG TAB PO SCH (09:00)
[2018-09-29] MEDS ORDERED: LOSARTAN 50 MG TAB PO SCH (09:00)
[2018-09-29] MEDS ORDERED: INSULIN DETEMIR (LEVEMIR) 100 UNIT/ML SYR SQ SCH (09:00)
[2018-09-29] MEDS ORDERED: CLOPIDOGREL 75 MG TAB PO SCH (09:00)
[2018-09-29] MEDS ORDERED: MEMANTINE 5 MG TAB PO SCH (09:00)
[2018-09-29] MEDS ORDERED: ASPIRIN 325 MG TAB PO SCH (09:00)
[2018-09-29] MEDS ORDERED: DULoxetine HCL 30 MG CAPSULE.DR PO SCH (09:00)
[2018-09-29] MEDS ORDERED: EZETIMIBE 10 MG TAB PO SCH (09:00)
--- NOTE | 2018-09-29 13:02 | DS ---
DISCHARGE SUMMARY ADMISSION DATE: 09/28/2018 DISCHARGE DATE: 09/29/2018 BRIEF HISTORY: This is a 78-year-old gentleman who was admitted to the hospital yesterday and underwent successful balloon angioplasty and stenting of the right common iliac artery using balloon expandable stent with an excellent angiographic results and without any complication. The procedure was performed from the right groin. The right groin is soft and nontender and without any bruises. The patient is going to be discharged home on dual anti-platelet therapy along with a statin and I will follow up with the patient in the office in a week. MMGENEVIEVEL / IJN: [id number] /
== END 2018-09-29 11:45 | disposition home or self-care (01) ==
LOC: CATHCVL 07:37 → 3SCARD 14:03 → CATHCVL 09-29 11:45
PROVIDERS: ATTEND Internal Medicine Interventional Cardiology
DX: I70.8 Atherosclerosis of other arteries (principal); I73.9 Peripheral vascular disease, unspecified; I70.0 Atherosclerosis of aorta; I25.10 Atherosclerotic heart disease of native coronary artery without angina pectoris; I25.2 Old myocardial infarction; I10 Essential (primary) hypertension; E11.9 Type 2 diabetes mellitus without complications; E78.5 Hyperlipidemia, unspecified; F17.210 Nicotine dependence, cigarettes, uncomplicated; I45.10 Unspecified right bundle-branch block; I08.1 Rheumatic disorders of both mitral and tricuspid valves; Z95.1 Presence of aortocoronary bypass graft; Z79.82 Long term (current) use of aspirin; Z79.4 Long term (current) use of insulin; Z79.899 Other long term (current) drug therapy; Z79.02 Long term (current) use of antithrombotics/antiplatelets
CPT/HCPCS: 37221; 75625; 75716; 80048 ×2; 85025 ×2; C1760; C1894 ×2; C1769 ×4; C1725; C1876; J2250; J2001; J3010; J1644; Q9966 ×2

== ENCOUNTER 2021-07-15 19:42 | Inpatient (IN) | payer MEDICARE ==
[2021-07-15] MEDS ORDERED: SODIUM CHLORIDE 0.9% 500 ML 500 ML IV STA (19:59)
--- NOTE | 2021-07-15 20:36 | XR ---
EXAMINATION TYPE: XR chest 1V portable DATE OF EXAM: 07/15/2021 8:28 PM COMPARISON:Multiple radiographs, with the most recent on or 13/10/2017 TECHNIQUE: Frontal view of the chest. CLINICAL INDICATION:Male, 80 years old with history of dyspnea; FINDINGS: Lungs/Pleura: Streaky atelectasis seen within the left midlung, similar prior. There is no evidence o f pleural effusion, focal consolidation, or pneumothorax. Stable right lower lobe nodule. Pulmonary vascularity: Unremarkable. Heart/mediastinum: Cardiomediastinal silhouette is unremarkable. Musculoskeletal: No acute osseous pathology. Other findings: Midline sternotomy wires and surgical clips project over the mediastinum. IMPRESSION: Chronic changes without acute pulmonary process. No significant change from prior.
[2021-07-15] MEDS ORDERED: ACETAMINOPHEN TAB 500 MG TAB PO STA (20:45)
--- NOTE | 2021-07-15 20:48 | ED ---
SOB HPI - General Chief Complaint: Shortness of Breath Stated Complaint: Cough Time Seen by Provider: 07/15/21 19:59 Source: patient, family, RN notes reviewed Mode of arrival: wheelchair Limitations: altered mental status - History of Present Illness Initial Comments: This is an unvaccinated 80-year-old male with a history of cardiac disease, hyperlipidemia, and hypertension. He presents to the emergency department today complaining of ongoing worsening shortness of breath, fever, chills, and generalized weakness over the past 2 weeks. According to the patient's he became much worse over the past 2 days. Patient not eating well. Mild tachypnea noted Generalized weakness, patient does complain of diminished appetite. no changes in vision or hearing, no sore throat or difficulty with speech, no neck pain, no chest pain or shortness of breath, no abdominal pain, no nausea or vomiting, no changes in urination or bowel movements, no numbness or tingling, no extremity pain, no skin rashes or lesions. - Related Data Home Medications Medication Instructions Recorded Confirmed DULoxetine HCL [Cymbalta] 30 mg PO DAILY 09/27/18 07/15/21 amLODIPine [Norvasc] 5 mg PO DAILY 09/27/18 07/15/21 Aspirin EC [Ecotrin Low Dose] 81 mg PO DAILY 07/15/21 07/15/21 Atorvastatin [Lipitor] 40 mg PO HS 07/15/21 07/15/21 Donepezil [Aricept] 5 mg PO DAILY 07/15/21 07/15/21 Dulaglutide [Trulicity] 0.75 mg SQ SA 07/15/21 07/15/21 Insulin Glargine [Lantus Vial] 26 unit SQ AC-SUPPER 07/15/21 07/15/21 Insulin Glargine [Lantus Vial] 32 unit SQ AC-BRKFST 07/15/21 07/15/21 Lisinopril [Prinivil] 10 mg PO DAILY 07/15/21 07/15/21 Memantine [Namenda] 10 mg PO BID 07/15/21 07/15/21 Omeprazole 20 mg PO DAILY 07/15/21 07/15/21 QUEtiapine [SEROquel] 25 mg PO HS 07/15/21 07/15/21 carvediloL [Coreg*] 12.5 mg PO DAILY 07/15/21 07/15/21 Previous Rx's Medication Instructions Recorded Clopidogrel [Plavix] 75 mg PO DAILY tab 08/13/18 Nitroglycerin Sl Tabs [Nitrostat] 0.4 mg SUBLINGUAL Q5M PRN tab 08/13/18 Allergies Allergy/AdvReac Type Severity Reaction Status Date / Time No Known Allergies Allergy Verified 07/15/21 21:29 Review of Systems ROS Statement: Those systems with pertinent positive or pertinent negative responses have been documented in the HPI. ROS Other: All systems not noted in ROS Statement are negative. Past Medical History Past Medical History: Coronary Artery Disease (CAD), Chest Pain / Angina, Diabetes Mellitus, Hyperlipidemia, Hypertension Additional Past Medical History / Comment(s): diverticulosis, mild stm loss, arthritis History of Any Multi-Drug Resistant Organisms: None Reported Past Surgical History: Coronary Bypass/CABG, Heart Catheterization, Heart Catheterization With Stent Additional Past Surgical History / Comment(s): CABG 2003. CATARACTS. BILATERAL EYE SURGERY (DIABETIC) right illiac stent placed by Dr Munoz 09/28/18 Past Anesthesia/Blood Transfusion Reactions: No Reported Reaction Date of Last Stent Placement:: UNK Past Psychological History: Depression Smoking Status: Former smoker Past Alcohol Use History: None Reported Past Drug Use History: None Reported - Past Family History Mother Family Medical History: CVA/TIA, Diabetes Mellitus Father Family Medical History: Coronary Artery Disease (CAD), Myocardial Infarction ([place]) Additional Family Medical History / Comment(s): passed at 42 Brother(s) Family Medical History: Coronary Artery Disease (CAD), Myocardial Infarction ([place]) Additional Family Medical History / Comment(s): 2 brothers young in 40's and 50's General Exam - General Exam Comments Initial Comments: Somewhat ill-appearing 80-year-old male in minimal distress. Patient does not appear to be toxic. No increased work of breathing. SpO2 on room air was 88%. Limitations: altered mental status General appearance: alert, in no apparent distress Head exam: Present: atraumatic, normocephalic, normal inspection Eye exam: Present: normal appearance, PERRL, EOMI. Absent: scleral icterus, conjunctival injection, periorbital swelling ENT exam: Present: normal exam, mucous membranes moist. Absent: normal oropharynx, mucous membranes dry Neck exam: Present: normal inspection. Absent: tenderness, meningismus, full ROM, lymphadenopathy Respiratory exam: Present: respiratory distress, rales. Absent: normal lung sounds bilaterally, wheezes, rhonchi, stridor Cardiovascular Exam: Present: regular rate, normal rhythm, normal heart sounds. Absent: systolic murmur, diastolic murmur, rubs, gallop, clicks GI/Abdominal exam: Present: soft, normal bowel sounds. Absent: distended, tenderness, guarding, rebound, rigid Extremities exam: Present: normal inspection, full ROM, normal capillary refill. Absent: tenderness, pedal edema, joint swelling, calf tenderness Back exam: Present: normal inspection Neurological exam: Present: alert, oriented X3, CN II-XII intact Psychiatric exam: Present: normal affect, normal mood Skin exam: Present: warm, dry, intact, normal color. Absent: rash Course Vital Signs 07/15/21 19:51 Temperature 100.9 F H Pulse Rate 78 Respiratory 28 H Rate Blood Pressure 112/66 O2 Sat by Pulse 88 L Oximetry - Reevaluation(s) Reevaluation #1: 07/15/21 21:43 Patient reevaluated and is improved on 2 L per nasal cannula. Patient COVID-19 positive. First dose of dexamethasone given. Consultation with hospitalist ordered. Medical Decision Making - Medical Decision Making Patient appears to have adequate peripheral profusion. Capillary refill less than 2 seconds. Mild distress. Does not appear to be toxic. Likely COVID-19 given the COVID-19 pandemic. Other infectious etiology is possible to include bacterial pneumonia, viral bronchitis, or other infectious etiology. Case was discussed with the on-call hospitalist physician, Dr. Funez The case was discussed in detail with ED attending physician. Presentation, findings, treatment plan discussed in detail. - Lab Data Result diagrams: 07/15/21 20:30 07/15/21 20:30 Lab Results 07/15/21 07/15/21 07/15/21 Range/Units 20:30 20:30 20:30 WBC 11.7 H (3.8-10.6) k/uL RBC 4.57 (4.30-5.90) m/uL Hgb 13.0 (13.0-17.5) gm/dL Hct 39.9 (39.0-53.0) % MCV 87.3 (80.0-100.0) fL MCH 28.5 (25.0-35.0) pg MCHC 32.6 (31.0-37.0) g/dL RDW 14.0 (11.5-15.5) % Plt Count 374 (150-450) k/uL MPV 8.8 Neutrophils % 85 % Lymphocytes % 4 % Monocytes % 8 % Eosinophils % 0 % Basophils % 0 % Neutrophils # 10.0 H (1.3-7.7) k/uL Lymphocytes # 0.4 L (1.0-4.8) k/uL Monocytes # 0.9 (0-1.0) k/uL Eosinophils # 0.0 (0-0.7) k/uL Basophils # 0.0 (0-0.2) k/uL Sodium 133 L (137-145) mmol/L Potassium 4.7 (3.5-5.1) mmol/L Chloride 103 (98-107) mmol/L Carbon Dioxide 20 L (22-30) mmol/L Anion Gap 10 mmol/L BUN 34 H (9-20) mg/dL Creatinine 1.35 H (0.66-1.25) mg/dL Est GFR (CKD-EPI)AfAm 58 (>60 ml/min/1.73 sqM) Est GFR (CKD-EPI)NonAf 50 (>60 ml/min/1.73 sqM) Glucose 281 H (74-99) mg/dL Plasma Lactic Acid Nic 1.3 (0.7-2.0) mmol/L Calcium 7.9 L (8.4-10.2) mg/dL Magnesium 2.3 (1.6-2.3) mg/dL Total Bilirubin 1.2 (0.2-1.3) mg/dL AST 40 (17-59) U/L ALT 29 (4-49) U/L Alkaline Phosphatase 122 (38-126) U/L Troponin I (0.000-0.034) ng/mL Total Protein 5.8 L (6.3-8.2) g/dL Albumin 3.0 L (3.5-5.0) g/dL Coronavirus (PCR) (Not Detectd) Influenza Type A RNA (Not Detectd) Influenza Type B (PCR) (Not Detectd) 07/15/21 07/15/21 07/15/21 Range/Units 20:30 20:30 20:30 WBC (3.8-10.6) k/uL RBC (4.30-5.90) m/uL Hgb (13.0-17.5) gm/dL Hct (39.0-53.0) % MCV (80.0-100.0) fL MCH (25.0-35.0) pg MCHC (31.0-37.0) g/dL RDW (11.5-15.5) % Plt Count (150-450) k/uL MPV Neutrophils % % Lymphocytes % % Monocytes % % Eosinophils % % Basophils % % Neutrophils # (1.3-7.7) k/uL Lymphocytes # (1.0-4.8) k/uL Monocytes # (0-1.0) k/uL Eosinophils # (0-0.7) k/uL Basophils # (0-0.2) k/uL Sodium (137-145) mmol/L Potassium (3.5-5.1) mmol/L Chloride (98-107) mmol/L Carbon Dioxide (22-30) mmol/L Anion Gap mmol/L BUN (9-20) mg/dL Creatinine (0.66-1.25) mg/dL Est GFR (CKD-EPI)AfAm (>60 ml/min/1.73 sqM) Est GFR (CKD-EPI)NonAf (>60 ml/min/1.73 sqM) Glucose (74-99) mg/dL Plasma Lactic Acid Nic (0.7-2.0) mmol/L Calcium (8.4-10.2) mg/dL Magnesium (1.6-2.3) mg/dL Total Bilirubin (0.2-1.3) mg/dL AST (17-59) U/L ALT (4-49) U/L Alkaline Phosphatase (38-126) U/L Troponin I <0.012 (0.000-0.034) ng/mL Total Protein (6.3-8.2) g/dL Albumin (3.5-5.0) g/dL Coronavirus (PCR) Detected A (Not Detectd) Influenza Type A RNA Not Detected (Not Detectd) Influenza Type B (PCR) Not Detected (Not Detectd) - EKG Data EKG Comments: EKG done at 2155 read by the ED attending physician reveals normal sinus rhythm with a left axis deviation. Rate of 68, normal intervals, no acute ST or T-wave changes. Critical Care Time Critical Care Time: Yes Total Critical Care Time: 31 Critical Care Time: Multiple reassessments, reevaluation patient's response to oxygenation, laboratory investigations, diagnostic studies. Discussion with the internal medicine physician. Discussion with ED attending physician. Disposition Clinical Impression: Acute hypoxemic respiratory failure due to COVID-19, Generalized weakness Disposition: ADMITTED IP TO THIS HOSP Referrals: Mike Ballesteros MD [Primary Care Provider] - 1-2 days
[2021-07-15 20:58] LABS: Basophils % (A) 0 %; Eosinophils % (A) 0 %; HCT 39.9 % (39.0-53.0); Lymphocytes # (A) 0.4 k/uL (1.0-4.8); Lymphocytes % (A) 4 %; MCH 28.5 pg (25.0-35.0); MCHC 32.6 g/dL (31.0-37.0); MCV 87.3 fL (80.0-100.0); Mean Platelet Volume 8.8; Monocytes # (A) 0.9 k/uL (0-1.0); Monocytes % (A) 8 %; Neutrophils % (A) 85 %; Platelet Count 374 k/uL (150-450); RBC 4.57 m/uL (4.30-5.90); WBC 11.7 k/uL (3.8-10.6)
[2021-07-15 21:07] LABS: Calcium 7.9 mg/dL (8.4-10.2); Magnesium 2.3 mg/dL (1.6-2.3); Potassium 4.7 mmol/L (3.5-5.1); Total Bilirubin 1.2 mg/dL (0.2-1.3); Total Protein 5.8 g/dL (6.3-8.2)
[2021-07-15] MEDS ORDERED: DEXAMETHASONE SOD PHOSPHATE 10 MG/ML 1 ML VIAL IVP SCH (21:45)
[2021-07-15] MEDS ORDERED: VANCOMYCIN 1,750 MG in SODIUM CHLORIDE 0.9% 500 ML 500 ML IVPB ONE (22:00)
[2021-07-15] MEDS ORDERED: ACETAMINOPHEN TAB 325 MG TAB PO PRN (22:34)
[2021-07-15] MEDS ORDERED: ALBUTEROL HFA INHALER INHALATION STA (22:34)
[2021-07-15] MEDS: ENOXAPARIN 40 MG/0.4 ML SYRINGE SQ SCH (22:51)
[2021-07-16 00:38] LABS: Glucose,Whole Blood 249 mg/dL (75-99)
--- NOTE | 2021-07-16 01:18 | P.HPIM ---
History of Present Illness H&P Date: 07/16/21 Patient is a 80-year-old male with a PMH of hypertension, hyperkalemia, coronary artery disease, type II DM who was brought into the emergency room by her family members due to gradually worsening shortness of breath. History is obtained from the chart and from the ED staff as the patient was very confused at the time of interview and the family could not be reached via the numbers in the chart. The patient did reportedly been experiencing gradually worsening shortness of breath, fever, chills, and diffuse lethargy and weakness over the past 1-2 weeks which had acutely worsened over the past 2 days. The patient also was noted to have decreased appetite and had appeared to be tachypneic to the family members, which prompted them to bring him to the emergency room. The patient is unvaccinated against COVID 19. In the emergency room, the patient's laboratory evaluation revealed coronavirus PCR positive, sodium 133, BUN 34, creatinine 1.35, and glucose 281. Chest x-ray revealed chronic changes without any acute process with EKG showing normal sinus rhythm at 68 bpm with left axis deviation. The patient was hypoxic in the emergency room presentation with SpO2 88% on room air, afebrile to 100.9F, and tachypneic with 28 respiratory rate. Review of systems: Unable to perform as patient was confused and not answering questions appropriately Physical examination: General: non toxic, no distress, appears at stated age, normal weight Derm: no unusual rashes/lesions no unusual ecchymoses, warm, dry Head: atraumatic, normocephalic, symmetric Eyes: EOMI, no lid lag, anicteric sclera, pupils equal round reactive to light ENT: Nose and ears atraumatic, no thrush, no pharyngeal erythema Neck: No thyromegaly, no cervical lymphadenopathy, trachea midline, supple Mouth: no lip lesion, mucus membranes moist Cardiovascular: S1S2 reg, no murmur, positive posterior tibial pulse bilateral, no edema, capillary refill less than 2 seconds Lungs: CTA bilateral, no rhonchi, no rales , no accessory muscle use Abdominal: soft, nontender to palpation, no guarding, no appreciable organome javed, normal bowel sounds Ext: no gross muscle atrophy, muscle strength 3 out of 5 in all 4 extremities grossly, no contractures, Neuro: CN II-XI grossly intact, light touch intact all 4 extremities, finger to nose within normal limits, Psych: Awake, confused, not answering questions appropriately, oriented only to person and partially to place Assessment/plan Acute hypoxic respiratory failure secondary to COVID-19 pneumonitis -Continue supplemental oxygen -Pulmonary consult -Zinc, melatonin, vitamin C, vitamin D -Monitor inflammatory markers Acute kidney injury, likely secondary to dehydration -Continue with IV fluids Chronic conditions: Type 2 DM, Hypertension, hyperlipidemia -Lispro insulin sliding scale blood glucose monitoring -Check A1c -Continue with home medications DVT prophylaxis -Lovenox The patient is admitted with an anticipated greater than 2 midnight stay for mikie luation of COVID CODE STATUS:Full Code Discussed with: Patient Anticipated discharge date: Unknown Anticipated discharge place: Home Past Medical History Past Medical History: Coronary Artery Disease (CAD), Chest Pain / Angina, Diabetes Mellitus, Hyperlipidemia, Hypertension Additional Past Medical History / Comment(s): diverticulosis, mild stm loss, arthritis History of Any Multi-Drug Resistant Organisms: None Reported Past Surgical History: Coronary Bypass/CABG, Heart Catheterization, Heart Catheterization With Stent Additional Past Surgical History / Comment(s): CABG 2003. CATARACTS. BILATERAL EYE SURGERY (DIABETIC) right illiac stent placed by Dr Munoz 09/28/18 Past Anesthesia/Blood Transfusion Reactions: No Reported Reaction Date of Last Stent Placement:: UNK Past Psychological History: Depression Smoking Status: Former smoker Past Alcohol Use History: None Reported Past Drug Use History: None Reported - Past Family History Mother Family Medical History: CVA/TIA, Diabetes Mellitus Father Family Medical History: Coronary Artery Disease (CAD), Myocardial Infarction ([place]) Additional Family Medical History / Comment(s): passed at 42 Brother(s) Family Medical History: Coronary Artery Disease (CAD), Myocardial Infarction ([place]) Additional Family Medical History / Comment(s): 2 brothers young in 40's and 50's Medications and Allergies Home Medications Medication Instructions Recorded Confirmed Type Clopidogrel [Plavix] 75 mg PO DAILY tab 08/13/18 07/15/21 Rx Nitroglycerin Sl Tabs [Nitrostat] 0.4 mg SUBLINGUAL Q5M PRN tab 08/13/18 07/15/21 Rx DULoxetine HCL [Cymbalta] 30 mg PO DAILY 09/27/18 07/15/21 History amLODIPine [Norvasc] 5 mg PO DAILY 09/27/18 07/15/21 History Aspirin EC [Ecotrin Low Dose] 81 mg PO DAILY 07/15/21 07/15/21 History Atorvastatin [Lipitor] 40 mg PO HS 07/15/21 07/15/21 History Donepezil [Aricept] 5 mg PO DAILY 07/15/21 07/15/21 History Dulaglutide [Trulicity] 0.75 mg SQ SA 07/15/21 07/15/21 History Insulin Glargine [Lantus Vial] 26 unit SQ AC-SUPPER 07/15/21 07/15/21 History Insulin Glargine [Lantus Vial] 32 unit SQ AC-BRKFST 07/15/21 07/15/21 History Lisinopril [Prinivil] 10 mg PO DAILY 07/15/21 07/15/21 History Memantine [Namenda] 10 mg PO BID 07/15/21 07/15/21 History Omeprazole 20 mg PO DAILY 07/15/21 07/15/21 History QUEtiapine [SEROquel] 25 mg PO HS 07/15/21 07/15/21 History carvediloL [Coreg*] 12.5 mg PO DAILY 07/15/21 07/15/21 History Allergies Allergy/AdvReac Type Severity Reaction Status Date / Time No Known Allergies Allergy Verified 07/15/21 21:29 Physical Exam Vitals: Vital Signs Temp Pulse Resp BP Pulse Ox 07/16/21 00:21 97.8 F 65 18 110/70 96 07/15/21 20:55 18 07/15/21 19:51 100.9 F H 78 28 H 112/66 88 L Intake and Output 07/15/21 07/15/21 07/16/21 14:59 22:59 06:59 Other: Weight 81.647 kg Results CBC & Chem 7: 07/15/21 20:30 07/15/21 20:30 Labs: Abnormal Lab Results - Last 24 Hours (Table) 07/15/21 07/15/21 07/15/21 Range/Units 20:30 20:30 20:30 WBC 11.7 H (3.8-10.6) k/uL Neutrophils # 10.0 H (1.3-7.7) k/uL Lymphocytes # 0.4 L (1.0-4.8) k/uL Sodium 133 L (137-145) mmol/L Carbon Dioxide 20 L (22-30) mmol/L BUN 34 H (9-20) mg/dL Creatinine 1.35 H (0.66-1.25) mg/dL Glucose 281 H (74-99) mg/dL POC Glucose (mg/dL) (75-99) mg/dL Calcium 7.9 L (8.4-10.2) mg/dL Total Protein 5.8 L (6.3-8.2) g/dL Albumin 3.0 L (3.5-5.0) g/dL Coronavirus (PCR) Detected A (Not Detectd) 07/16/21 Range/Units 00:35 WBC (3.8-10.6) k/uL Neutrophils # (1.3-7.7) k/uL Lymphocytes # (1.0-4.8) k/uL Sodium (137-145) mmol/L Carbon Dioxide (22-30) mmol/L BUN (9-20) mg/dL Creatinine (0.66-1.25) mg/dL Glucose (74-99) mg/dL POC Glucose (mg/dL) 249 H (75-99) mg/dL Calcium (8.4-10.2) mg/dL Total Protein (6.3-8.2) g/dL Albumin (3.5-5.0) g/dL Coronavirus (PCR) (Not Detectd)
[2021-07-16 01:41] LABS: C Reactive Protein 20.8 mg/dL (<1.0)
[2021-07-16] MEDS: SODIUM CHLORIDE 0.9% 1,000 ML IV SCH ×2 (02:00→12:16)
[2021-07-16 07:18] LABS: Glucose,Whole Blood 237 mg/dL (75-99)
[2021-07-16] MEDS: CHOLECALCIFEROL 125 MCG (5000 IU) TABLET PO SCH (07:43)
[2021-07-16] MEDS: INSULIN ASPART (NovoLOG) 100 UNIT/ML VIAL SQ SCH ×4 (07:43→20:16)
[2021-07-16] MEDS: ZINC SULFATE 220 MG CAP PO SCH (07:43)
[2021-07-16] MEDS: ASCORBIC ACID 500 MG TAB PO SCH (07:43)
[2021-07-16] MEDS: dexAMETHasone 2 MG TAB PO SCH (07:43)
[2021-07-16 09:21] LABS: Basophils % (A) 0 %; Eosinophils % (A) 0 %; HCT 40.7 % (39.0-53.0); Lymphocytes # (A) 0.5 k/uL (1.0-4.8); Lymphocytes % (A) 7 %; MCH 28.4 pg (25.0-35.0); MCHC 31.9 g/dL (31.0-37.0); MCV 88.9 fL (80.0-100.0); Mean Platelet Volume 8.6; Monocytes # (A) 0.5 k/uL (0-1.0); Monocytes % (A) 6 %; Neutrophils % (A) 84 %; Platelet Count 362 k/uL (150-450); RBC 4.58 m/uL (4.30-5.90); RDW 13.9 % (11.5-15.5); WBC 7.2 k/uL (3.8-10.6)
[2021-07-16 09:55] LABS: Albumin 2.7 g/dL (3.5-5.0); Calcium 8.1 mg/dL (8.4-10.2); Magnesium 2.4 mg/dL (1.6-2.3); Potassium 4.4 mmol/L (3.5-5.1); Total Protein 5.6 g/dL (6.3-8.2)
[2021-07-16 10:33] LABS: C Reactive Protein 20.5 mg/dL (<1.0)
[2021-07-16 11:33] LABS: Glucose,Whole Blood 255 mg/dL (75-99)
[2021-07-16] MEDS: CLOPIDOGREL 75 MG TAB PO SCH (12:15)
[2021-07-16] MEDS: amLODIPine 5 MG TAB PO SCH (12:15)
[2021-07-16] MEDS: DONEPEZIL 5 MG TAB PO SCH (12:15)
[2021-07-16] MEDS: carvediloL 12.5 MG TAB PO SCH (12:15)
[2021-07-16] MEDS: MEMANTINE 10 MG TAB PO SCH ×2 (12:15→20:16)
[2021-07-16] MEDS: ASPIRIN 81 MG PO SCH (12:15)
--- NOTE | 2021-07-16 12:45 | P.CNPUL ---
History of Present Illness Consult date: 07/16/21 Requesting physician: Eboni Funez Reason for consult: dyspnea Chief complaint: Shortness of breath History of present illness: This 80-year-old white male patient with advanced dementia, who is a very poor historian, and prior history of cardiac disease, hyperlipidemia, hypertension, previous history of coronary artery bypass grafting surgery, diabetes mellitus, hyperlipidemia, former smoker, peripheral vascular disease with prior history of right iliac stent placement, and depression who was brought into the hospital on 07/15/2021 for evaluation of shortness of breath according to the ED documentation. Patient is very confused, he is not able to tell me what brought him to the hospital. However does not appear to be in any acute distress, he states his brought him in. He is only oriented 1, he did not know he was in the hospital, he is not able to tell me the exact date. He seems to have delayed verbal response to questioning, but he is awake, he is trying to feed himself. He denies being short of breath, he states that he does cough all the time. Denies any chest discomfort. Is currently on 2 L of oxygen his pulse ox is 96%, according to the ED documentation patient was complaining of ongoing worsening shortness of breath, fever chills, generalized weakness over the past 2 weeks, according to the patient was diagnosed with COVID-19 on 07/08/2021, he is non-vaccinated for COVID-19, his breathing became much worse, he was very weak and unable to walk, she was not eating well. Chest x-ray in emergency department showed chronic changes without acute pulmonary process. COVID-19 PCR was positive, influenza A and B PCR were negative, his white count was 11.7, hemoglobin was 13.0, fibrinogen level was 844, d-dimer was 1.5, sodium is 133, potassium is 4.7, CO2 is 20, BUN is 34 creatinine is 1.35, lactic acid was 1.3. LFTs are within normal limits, LDH was 937, CRP was 20.8, troponin was less than 0.012, pro calcitonin level was 0.55. Patient is outside the window for Remdesivir, he was started on Decadron 6 mg daily, he is on prophylactic Lovenox 40 mg daily, he was given gentle IV hydration with 500 mL IV fluid bolus in the emergency department, his maintenance IV fluids infusing at rate of 75 ML per hour. Blood culture has been sent and is pending. Patient did have a low- grade fever overnight with a temp of 100.9F. He is afebrile this morning, his appetite is clean, he is feeding himself. Lung sounds reveal scattered crackles, no rhonchi, no wheezing, patient denies any chest pain, abdomen is soft, denies any nausea, no diarrhea. Review of Systems All systems: negative Constitutional: Denies chills, Denies fever Eyes: denies blurred vision, denies pain Ears, nose, mouth and throat: Denies headache, Denies sore throat Cardiovascular: Denies chest pain, Denies shortness of breath Respiratory: Reports dyspnea, Denies cough Gastrointestinal: Denies abdominal pain, Denies diarrhea, Denies nausea, Denies vomiting Musculoskeletal: Denies myalgias Integumentary: Denies pruritus, Denies rash Neurological: Denies numbness, Denies weakness Psychiatric: Denies anxiety, Denies depression Endocrine: Denies fatigue, Denies weight change Past Medical History Past Medical History: Coronary Artery Disease (CAD), Chest Pain / Angina, Dementia, Diabetes Mellitus, Eye Disorder, GERD/Reflux, Hyperlipidemia, Hypertension, Memory Impairment, Vascular Disorder Additional Past Medical History / Comment(s): Devante states pt tested covid + either 07/05/21 or 07/06/21 at [facility]. 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, PVD/intermittent claudication/R leg surgery with stent, arthritis bilateral hands, chronic back pain/DDD, diverticular disease History of Any Multi-Drug Resistant Organisms: None Reported Past Surgical History: Coronary Bypass/CABG, Heart Catheterization, Heart Catheterization With Stent Additional Past Surgical History / Comment(s): 2003 CABG 4 vessel, PCI with stent in [place] approximately 15 yrs ago, 2019 R iliac PTBA/stent, bilateral eye surgery for "diabetic eye problem" Past Anesthesia/Blood Transfusion Reactions: No Reported Reaction Date of Last Stent Placement:: approximately 2006 Smoking Status: Former smoker - Past Family History Mother Family Medical History: CVA/TIA, Diabetes Mellitus Father Family Medical History: Coronary Artery Disease (CAD), Myocardial Infarction ([place]) Additional Family Medical History / Comment(s): passed at 42 from [place] Brother(s) Family Medical History: Coronary Artery Disease (CAD), Myocardial Infarction ([place]) Additional Family Medical History / Comment(s): 2 brothers young in 40's and 50's from MIs. Medications and Allergies Home Medications Medication Instructions Recorded Confirmed Type Clopidogrel [Plavix] 75 mg PO DAILY tab 08/13/18 07/15/21 Rx Nitroglycerin Sl Tabs [Nitrostat] 0.4 mg SUBLINGUAL Q5M PRN tab 08/13/18 07/15/21 Rx DULoxetine HCL [Cymbalta] 30 mg PO DAILY 09/27/18 07/15/21 History amLODIPine [Norvasc] 5 mg PO DAILY 09/27/18 07/15/21 History Aspirin EC [Ecotrin Low Dose] 81 mg PO DAILY 07/15/21 07/15/21 History Atorvastatin [Lipitor] 40 mg PO HS 07/15/21 07/15/21 History Donepezil [Aricept] 5 mg PO DAILY 07/15/21 07/15/21 History Dulaglutide [Trulicity] 0.75 mg SQ SA 07/15/21 07/15/21 History Insulin Glargine [Lantus Vial] 26 unit SQ AC-SUPPER 07/15/21 07/15/21 History Insulin Glargine [Lantus Vial] 32 unit SQ AC-BRKFST 07/15/21 07/15/21 History Lisinopril [Prinivil] 10 mg PO DAILY 07/15/21 07/15/21 History Memantine [Namenda] 10 mg PO BID 07/15/21 07/15/21 History Omeprazole 20 mg PO DAILY 07/15/21 07/15/21 History QUEtiapine [SEROquel] 25 mg PO HS 07/15/21 07/15/21 History carvediloL [Coreg*] 12.5 mg PO DAILY 07/15/21 07/15/21 History Allergies Allergy/AdvReac Type Severity Reaction Status Date / Time No Known Allergies Allergy Verified 07/15/21 21:29 Physical Exam Vitals: Vital Signs Temp Pulse Pulse Resp BP BP Pulse Ox 07/16/21 10:10 97.7 F 70 18 140/61 96 07/16/21 04:40 96 07/16/21 04:39 97.6 F 60 15 132/61 07/16/21 04:32 22 07/16/21 03:15 99.9 F H 07/16/21 03:00 99.0 F 66 22 128/60 96 07/16/21 00:21 97.8 F 65 18 110/70 96 07/15/21 20:55 18 07/15/21 19:51 100.9 F H 78 28 H 112/66 88 L Intake and Output 07/15/21 07/16/21 07/16/21 22:59 06:59 14:59 Intake Total 150 780 Balance 150 780 Intake: IV 150 Sodium Chloride 0.9% 1, 150 000 ml @ 75 mls/hr IV . [id number] [facility] Rx#:[id number] Intake, IV Titration 600 Amount Sodium Chloride 0.9% 1, 600 000 ml @ 75 mls/hr IV . [id number] [facility] Rx#:[id number] Oral 180 Other: Voiding Method Diaper Weight 81.647 kg 81.647 kg GENERAL EXAM: Alert, confused 80-year-old white male, only oriented to self, resting comfortably, currently on 2 L of oxygen and a pulse ox of 96%, patient is a poor historian related to his underlying history of dementia, but appears comfortable in no apparent distress. HEAD: Normocephalic/atraumatic. EYES: Normal reaction of pupils, equal size. Conjunctiva pink, sclera white. NOSE: Clear with pink turbinates. THROAT: No erythema or exudates. NECK: No masses, no JVD, no thyroid enlargement, no adenopathy. CHEST: No chest wall deformity. Symmetrical expansion. LUNGS: Equal air entry with diffuse scattered crackles CVS: Regular rate and rhythm, normal S1 and S2, no gallops, no murmurs, no rubs ABDOMEN: Soft, nontender. No hepatosplenomegaly, normal bowel sounds, no guarding or rigidity. EXTREMITIES: No clubbing, no edema, no cyanosis, 2+ pulses and upper and lower extremities. MUSCULOSKELETAL: Muscle strength and tone normal. SPINE: No scoliosis or deformity SKIN: No rashes CENTRAL NERVOUS SYSTEM: Alert and oriented -3. No focal deficits, tone is normal in all 4 extremities. PSYCHIATRIC: Alert and oriented -3. Appropriate affect. Intact judgment and insight. Results - Laboratory Findings CBC and BMP: 07/16/21 08:51 07/16/21 08:51 PT/INR, D-dimer D-Dimer 0.97 mg/L FEU (<0.60) H 07/16/21 08:51 Abnormal lab findings: Abnormal Labs 07/15/21 07/15/21 07/15/21 20:30 20:30 20:30 WBC 11.7 H Neutrophils # 10.0 H Lymphocytes # 0.4 L Fibrinogen D-Dimer Sodium 133 L Carbon Dioxide 20 L BUN 34 H Creatinine 1.35 H Glucose 281 H POC Glucose (mg/dL) Calcium 7.9 L Magnesium Ferritin Lactate Dehydrogenase C-Reactive Protein Total Protein 5.8 L Albumin 3.0 L Procalcitonin Coronavirus (PCR) Detected A 07/16/21 07/16/21 07/16/21 00:35 00:40 00:40 WBC Neutrophils # Lymphocytes # Fibrinogen 844 H D-Dimer 1.55 H Sodium Carbon Dioxide BUN Creatinine Glucose POC Glucose (mg/dL) 249 H Calcium Magnesium Ferritin 752.0 H Lactate Dehydrogenase 937 H C-Reactive Protein 20.8 H Total Protein Albumin Procalcitonin Coronavirus (PCR) 07/16/21 07/16/21 07/16/21 00:40 07:16 08:51 WBC Neutrophils # Lymphocytes # Fibrinogen D-Dimer Sodium 136 L Carbon Dioxide 21 L BUN 34 H Creatinine 1.34 H Glucose 287 H POC Glucose (mg/dL) 237 H Calcium 8.1 L Magnesium 2.4 H Ferritin Lactate Dehydrogenase C-Reactive Protein 20.5 H Total Protein 5.6 L Albumin 2.7 L Procalcitonin 0.55 H Coronavirus (PCR) 07/16/21 07/16/21 07/16/21 08:51 08:51 11:32 WBC Neutrophils # Lymphocytes # 0.5 L Fibrinogen 848 H D-Dimer 0.97 H Sodium Carbon Dioxide BUN Creatinine Glucose POC Glucose (mg/dL) 255 H Calcium Magnesium Ferritin Lactate Dehydrogenase C-Reactive Protein Total Protein Albumin Procalcitonin Coronavirus (PCR) - Diagnostic Findings Chest x-ray: report reviewed, image reviewed Assessment and Plan Plan: Assessment: #1. Acute hypoxic respiratory failure related to acute COVID-19 infection, chest x-ray showing no acute pulmonary process. Patient presented to the hospital on 07/15/2021, he tested positive for COVID-19 on 07/08/2021, patient is not vaccinated against COVID-19. He is outside the window for Remdesivir, he is currently on Decadron, lactic Lovenox, multivitamins, and supportive treatment #2. Elevated pro-calcitonin level, rule out possibility of bacterial infection, chest x-ray showing no acute process #3. Dehydration, acute kidney injury, patient is receiving gentle IV hydration #4. Elevated inflammatory markers related to acute COVID-19 infection #5. Hypertension #6. Coronary artery disease with previous history of bypass grafting #7. Diabetes mellitus type 2 #8. Hyperlipidemia #9. History of peripheral vascular disease with previous right iliac stent placement #10. History of depression #11. Former smoker #12. Dementia Plan: Continue current medical treatment Chest x-ray and labs have been reviewed Patient is breathing comfortably, he is on 2 L of oxygen, Continue Decadron, continue prophylactic Lovenox Continue IV hydration Procalcitonin is elevated Blood cultures sent will send urinalysis, with culture Chest x-ray showing no acute pulmonary process We'll continue supportive treatment He is outside the window for Remdesivir Obtain lower extremity Dopplers to rule out possibility of DVT Continue monitoring inflammatory markers, and d-dimer levels I performed a history & physical examination of the patient and discussed their management with my nurse practitioner, Sera Mena. I reviewed the nurse practitioner's note and agree with the documented findings and plan of care. Lung sounds are positive for diffuse crackles throughout the lung oro. The findings and the impression was discussed with the patient. I attest to the documentation by the nurse practitioner. Time with Patient: Greater than 30
--- NOTE | 2021-07-16 14:36 | US ---
EXAMINATION TYPE: US venous doppler duplex LE DATE OF EXAM: 07/16/2021 1:58 PM COMPARISON: NONE CLINICAL HISTORY: elevated d-dimer. elevated d-dimer SIDE PERFORMED: bilateral TECHNIQUE: The lower extremity deep venous system is examined utilizing real time linear array sonog moustapha with graded compression, doppler sonography and color-flow sonography. VESSELS IMAGED: Common Femoral Vein Deep Femoral Vein Greater Saphenous Vein * Femoral Vein Popliteal Vein Small Saphenous Vein * Proximal Calf Veins (* superficial vessels) Right Leg: no evidence of DVT. rouleaux flow noted Left Leg: no evidence of DVT. rouleaux flow noted Grayscale, color doppler, spectral doppler imaging performed of the deep veins of the bilateral lower extremities. There is normal visualized color flow and compressibility. IMPRESSION: No ultrasound evidence for acute DVT in either lower extremity.
[2021-07-16 17:03] LABS: Glucose,Whole Blood 330 mg/dL (75-99)
[2021-07-16 18:56] LABS: Appearance,Urine Clear (Clear); Bilirubin,Urine Negative (Negative); Blood,Urine Negative (Negative); Color,Urine Yellow; Glucose,Urine (UA) 4+ (Negative); Hyaline Casts,Urine 4 /lpf (0-2); Ketones,Urine Negative (Negative); Leukocyte Esterase,Urine Negative (Negative); Mucus,Urine Rare /hpf; Nitrite,Urine Negative (Negative); PH, Urine 5.5 (5.0-8.0); Protein,Urine 2+ (Negative); RBC,Urine <1 /hpf (0-5); Specific Gravity,Urine 1.022 (1.001-1.035); Squamous Epithelial Cell,Urine <1 /hpf (0-4); WBC,Urine 2 /hpf (0-5)
[2021-07-16 19:50] LABS: Glucose,Whole Blood 385 mg/dL (75-99)
[2021-07-16] MEDS: QUEtiapine 25 MG TAB PO SCH (20:16)
[2021-07-16] MEDS: ATORVASTATIN 40 MG TAB PO SCH (20:16)
--- NOTE | 2021-07-16 23:15 | P.PN ---
Progress Note - Text Progress Note Date: 07/16/21 RN notified me of short runs of non sustained Vtach, patient asymptomatic , no history of CHF, positive history of CAD. electrolytes reviewed and Mg and K are at goal. patient on low dose BB. patient admitted for covid and hypoxemia defer to day team for further evaluation and monitoring , if these events are persistent then consider cardio consult
[2021-07-17] MEDS: ENOXAPARIN 40 MG/0.4 ML SYRINGE SQ SCH (00:03)
[2021-07-17 02:36] LABS: Glucose,Whole Blood 297 mg/dL (75-99)
[2021-07-17] MEDS: SODIUM CHLORIDE 0.9% 1,000 ML IV SCH ×2 (02:36→17:09)
[2021-07-17 07:06] LABS: Glucose,Whole Blood 294 mg/dL (75-99)
[2021-07-17] MEDS: DULoxetine HCL 30 MG CAPSULE.DR PO SCH (08:16)
[2021-07-17] MEDS: INSULIN ASPART (NovoLOG) 100 UNIT/ML VIAL SQ SCH ×4 (08:16→21:05)
[2021-07-17] MEDS: INSULIN DETEMIR (LEVEMIR) 100 UNIT/ML SYR SQ SCH (08:16)
[2021-07-17] MEDS: ZINC SULFATE 220 MG CAP PO SCH (08:17)
[2021-07-17] MEDS: ASCORBIC ACID 500 MG TAB PO SCH (08:17)
[2021-07-17] MEDS: CLOPIDOGREL 75 MG TAB PO SCH (08:17)
[2021-07-17] MEDS: dexAMETHasone 2 MG TAB PO SCH (08:17)
[2021-07-17] MEDS: ASPIRIN 81 MG PO SCH (08:17)
[2021-07-17] MEDS: carvediloL 12.5 MG TAB PO SCH (08:17)
[2021-07-17] MEDS: CHOLECALCIFEROL 125 MCG (5000 IU) TABLET PO SCH (08:17)
[2021-07-17] MEDS: amLODIPine 5 MG TAB PO SCH (08:17)
[2021-07-17] MEDS: DONEPEZIL 5 MG TAB PO SCH (08:17)
[2021-07-17] MEDS: MEMANTINE 10 MG TAB PO SCH ×2 (08:17→21:05)
--- NOTE | 2021-07-17 09:17 | P.PN ---
Subjective Progress Note Date: 07/17/21 Principal diagnosis: Patient appears to be more awake and alert today hysical examination: General: non toxic, no distress, appears at stated age, normal weight Derm: no unusual rashes/lesions no unusual ecchymoses, warm, dry Head: atraumatic, normocephalic, symmetric Eyes: EOMI, no lid lag, anicteric sclera, pupils equal round reactive to light ENT: Nose and ears atraumatic, no thrush, no pharyngeal erythema Neck: No thyromegaly, no cervical lymphadenopathy, trachea midline, supple Mouth: no lip lesion, mucus membranes moist Cardiovascular: S1S2 reg, no murmur, positive posterior tibial pulse bilateral, no edema, capillary refill less than 2 seconds Lungs: CTA bilateral, no rhonchi, no rales , no accessory muscle use Abdominal: soft, nontender to palpation, no guarding, no appreciable organomegaly, normal bowel sounds Ext: no gross muscle atrophy, muscle strength 3 out of 5 in all 4 extremities grossly, no contractures, Neuro: CN II-XI grossly intact, light touch intact all 4 extremities, finger to nose within normal limits, Psych: Awake, confused, not answering questions appropriately, oriented only to person and partially to place Assessment/plan Acute hypoxic respiratory failure secondary to COVID-19 pneumonitis We'll continue to wean oxygen Patient needs to stay in the hospital for at least another day or 2 continue monitoring -Continue supplemental oxygen -Pulmonary consult -Zinc, melatonin, vitamin C, vitamin D -Monitor inflammatory markers Acute kidney injury, likely secondary to dehydration -Continue with IV fluids Chronic conditions: Type 2 DM, Hypertension, hyperlipidemia -Lispro insulin sliding scale blood glucose monitoring -Check A1c -Continue with home medications DVT prophylaxis -Lovenox The patient is admitted with an anticipated greater than 2 midnight stay for evaluation of COVID CODE STATUS:Full Code Discussed with: Patient Anticipated discharge date: Unknown Anticipated discharge place: Home Objective - Vital Signs Vital signs: Vital Signs Temp 97.6 F 07/17/21 05:06 Pulse 67 07/17/21 05:06 Resp 14 07/17/21 05:06 BP 161/69 07/17/21 05:06 Pulse Ox 98 07/17/21 05:06 Intake & Output 07/16/21 07/17/21 07/17/21 18:59 06:59 18:59 Intake Total 960 180 Balance 960 180 Weight 81.647 kg Intake: Intake, IV Titration 600 Amount Sodium Chloride 0.9% 1, 600 000 ml @ 75 mls/hr IV . [id number] [facility] Rx#:[id number] Oral 360 180 Other: Voiding Method Diaper Diaper # Voids 1 - Labs CBC & Chem 7: 07/16/21 08:51 07/16/21 08:51 Labs: Abnormal Lab Results - Last 24 Hours (Table) 07/16/21 07/16/21 07/16/21 Range/Units 00:40 00:40 08:51 Lymphocytes # (1.0-4.8) k/uL Fibrinogen (200-500) mg/dL D-Dimer (<0.60) mg/L FEU Sodium 136 L (137-145) mmol/L Carbon Dioxide 21 L (22-30) mmol/L BUN 34 H (9-20) mg/dL Creatinine 1.34 H (0.66-1.25) mg/dL Glucose 287 H (74-99) mg/dL POC Glucose (mg/dL) (75-99) mg/dL Hemoglobin A1c (0.0-6.0) % Calcium 8.1 L (8.4-10.2) mg/dL Magnesium 2.4 H (1.6-2.3) mg/dL Ferritin 752.0 H 863.0 H (22.0-322.0) ng/mL C-Reactive Protein 20.5 H (<1.0) mg/dL Total Protein 5.6 L (6.3-8.2) g/dL Albumin 2.7 L (3.5-5.0) g/dL Procalcitonin 0.55 H (0.02-0.09) ng/mL Urine Protein (Negative) Urine Glucose (UA) (Negative) Hyaline Casts (0-2) /lpf Urine Mucus (None) /hpf 07/16/21 07/16/21 07/16/21 Range/Units 08:51 08:51 08:51 Lymphocytes # 0.5 L (1.0-4.8) k/uL Fibrinogen 848 H (200-500) mg/dL D-Dimer 0.97 H (<0.60) mg/L FEU Sodium (137-145) mmol/L Carbon Dioxide (22-30) mmol/L BUN (9-20) mg/dL Creatinine (0.66-1.25) mg/dL Glucose (74-99) mg/dL POC Glucose (mg/dL) (75-99) mg/dL Hemoglobin A1c 9.9 H (0.0-6.0) % Calcium (8.4-10.2) mg/dL Magnesium (1.6-2.3) mg/dL Ferritin (22.0-322.0) ng/mL C-Reactive Protein (<1.0) mg/dL Total Protein (6.3-8.2) g/dL Albumin (3.5-5.0) g/dL Procalcitonin (0.02-0.09) ng/mL Urine Protein (Negative) Urine Glucose (UA) (Negative) Hyaline Casts (0-2) /lpf Urine Mucus (None) /hpf 07/16/21 07/16/21 07/16/21 Range/Units 11:32 17:02 18:35 Lymphocytes # (1.0-4.8) k/uL Fibrinogen (200-500) mg/dL D-Dimer (<0.60) mg/L FEU Sodium (137-145) mmol/L Carbon Dioxide (22-30) mmol/L BUN (9-20) mg/dL Creatinine (0.66-1.25) mg/dL Glucose (74-99) mg/dL POC Glucose (mg/dL) 255 H 330 H (75-99) mg/dL Hemoglobin A1c (0.0-6.0) % Calcium (8.4-10.2) mg/dL Magnesium (1.6-2.3) mg/dL Ferritin (22.0-322.0) ng/mL C-Reactive Protein (<1.0) mg/dL Total Protein (6.3-8.2) g/dL Albumin (3.5-5.0) g/dL Procalcitonin (0.02-0.09) ng/mL Urine Protein 2+ H (Negative) Urine Glucose (UA) 4+ H (Negative) Hyaline Casts 4 H (0-2) /lpf Urine Mucus Rare H (None) /hpf 07/16/21 07/17/21 07/17/21 Range/Units 19:48 02:34 07:04 Lymphocytes # (1.0-4.8) k/uL Fibrinogen (200-500) mg/dL D-Dimer (<0.60) mg/L FEU Sodium (137-145) mmol/L Carbon Dioxide (22-30) mmol/L BUN (9-20) mg/dL Creatinine (0.66-1.25) mg/dL Glucose (74-99) mg/dL POC Glucose (mg/dL) 385 H 297 H 294 H (75-99) mg/dL Hemoglobin A1c (0.0-6.0) % Calcium (8.4-10.2) mg/dL Magnesium (1.6-2.3) mg/dL Ferritin (22.0-322.0) ng/mL C-Reactive Protein (<1.0) mg/dL Total Protein (6.3-8.2) g/dL Albumin (3.5-5.0) g/dL Procalcitonin (0.02-0.09) ng/mL Urine Protein (Negative) Urine Glucose (UA) (Negative) Hyaline Casts (0-2) /lpf Urine Mucus (None) /hpf Microbiology - Last 24 Hours (Table) 07/15/21 20:25 Blood Culture - Preliminary Blood No Growth after 24 hours
[2021-07-17 10:16] VITALS: BMI 24.4
[2021-07-17 11:36] LABS: Glucose,Whole Blood 324 mg/dL (75-99)
[2021-07-17 11:39] LABS: Basophils # (A) 0.02 X 10*3/uL (0.00-0.10); Basophils % (A) 0.1 %; Eosinophils # (A) 0 X 10*3/uL (0.04-0.35); Eosinophils % (A) 0 %; HCT 36.4 % (39.6-50.0); HGB 11.5 g/dL (13.0-17.0); Lymphocytes % (A) 2.4 %; MCH 27.3 pg (27.0-32.0); MCHC 31.6 g/dL (32.0-37.0); MCV 86.5 fL (80.0-97.0); Mean Platelet Volume 11.2 fL (9.5-12.2); Monocytes # (A) 1.16 X 10*3/uL (0.20-1.00); Monocytes % (A) 6.8 %; Neutrophils # (A) 15.23 X 10*3/uL (1.80-7.70); Neutrophils % (A) 89.5 %; Platelet Count 391 X 10*3/uL (140-440); RBC 4.21 X 10*6/uL (4.40-5.60); RDW 14.3 % (11.5-14.5); WBC 17.01 X 10*3/uL (4.50-10.00)
[2021-07-17 12:26] LABS: African American GFR (CKD) 74.1 (60.0-200.0); Albumin 2.6 g/dL (3.8-4.9); Albumin/Globulin Ratio 1.13 (1.60-3.17); Anion Gap 12.5 mmol/L (10.00-18.00); BUN/Creat Ratio 27.64 Ratio (12.00-20.00); Blood Urea Nitrogen 30.4 mg/dL (9.0-27.0); C Reactive Protein 7.7 mg/dL (0.00-0.80); Calcium 8.1 mg/dL (8.7-10.3); Carbon Dioxide 17.5 mmol/L (20.0-27.5); Globulin 2.3 g/dL (1.6-3.3); Magnesium 2.1 mg/dL (1.5-2.4); Potassium 4.9 mmol/L (3.5-5.5); Total Bilirubin 0.4 mg/dL (0.30-1.20); Total Protein 4.9 g/dL (6.2-8.2)
--- NOTE | 2021-07-17 14:30 | P.PN ---
Subjective Progress Note Date: 07/17/21 This 80-year-old white male patient with advanced dementia, who is a very poor historian, and prior history of cardiac disease, hyperlipidemia, hypertension, previous history of coronary artery bypass grafting surgery, diabetes mellitus, hyperlipidemia, former smoker, peripheral vascular disease with prior history of right iliac stent placement, and depression who was brought into the hospital on 07/15/2021 for evaluation of shortness of breath according to the ED documentation. Patient is very confused, he is not able to tell me what brought him to the hospital. However does not appear to be in any acute distress, he states his brought him in. He is only oriented 1, he did not know he was in the hospital, he is not able to tell me the exact date. He seems to have delayed verbal response to questioning, but he is awake, he is trying to feed himself. He denies being short of breath, he states that he does cough all the time. Denies any chest discomfort. Is currently on 2 L of oxygen his pulse ox is 96%, according to the ED documentation patient was complaining of ongoing worsening shortness of breath, fever chills, generalized weakness over the past 2 weeks, according to the patient was diagnosed with COVID-19 on 07/08/2021, he is non-vaccinated for COVID-19, his breathing became much worse, he was very weak and unable to walk, she was not eating well. Chest x-ray in emergency department showed chronic changes without acute pulmonary process. COVID-19 PCR was positive, influenza A and B PCR were negative, his white count was 11.7, hemoglobin was 13.0, fibrinogen level was 844, d-dimer was 1.5, sodium is 133, potassium is 4.7, CO2 is 20, BUN is 34 creatinine is 1.35, lactic acid was 1.3. LFTs are within normal limits, LDH was 937, CRP was 20.8, troponin was less than 0.012, pro calcitonin level was 0.55. Patient is outside the window for Remdesivir, he was started on Decadron 6 mg daily, he is on prophylactic Lovenox 40 mg daily, he was given gentle IV hydration with 500 mL IV fluid bolus in the emergency department, his maintenance IV fluids infusing at rate of 75 ML per hour. Blood culture has been sent and is pending. Patient did have a low-g rade fever overnight with a temp of 100.9F. He is afebrile this morning, his appetite is clean, he is feeding himself. Lung sounds reveal scattered crackles, no rhonchi, no wheezing, patient denies any chest pain, abdomen is soft, denies any nausea, no diarrhea. The patient is seen today 07/17/2021 in follow-up on the regular medical floor. He is currently sitting up in bed. Awake and alert in no acute distress. He is somewhat disoriented to time and place. He does have a history of dementia that has been on the decline. The plan is for transfer to subacute rehabilitation on Monday. Presently he is 98% O2 saturation on 2 L however he does drop to 84% on room air. He is continued on Decadron, Lovenox, vitamin supplements. Dopplers of the lower extremities revealed no evidence of DVT. White count 17.0. Hemoglobin 11.5. D-dimer 0.73. Sodium 136. Potassium 4.9. Creatinine 1.1. Glucose 3:30. AST 22. ALT 20. Objective - Vital Signs Vital signs: Vital Signs Temp 97.9 F 07/17/21 08:46 Pulse 63 07/17/21 08:46 Resp 17 07/17/21 08:46 BP 157/70 07/17/21 08:46 Pulse Ox 91 L 07/17/21 08:46 Intake & Output 07/16/21 07/17/21 07/17/21 18:59 06:59 18:59 Intake Total 960 180 Balance 960 180 Weight 81.647 kg 81.647 kg Intake: Intake, IV Titration 600 Amount Sodium Chloride 0.9% 1, 600 000 ml @ 75 mls/hr IV . [id number] [facility] Rx#:[id number] Oral 360 180 Other: Voiding Method Diaper Diaper # Voids 1 - Exam GENERAL EXAM: Alert, confused 80-year-old patient, only oriented to self, resting comfortably, currently on 2 L of oxygen and a pulse ox of 98%, patient is a poor historian related to his underlying history of dementia, but appears comfortable in no apparent distress. HEAD: Normocephalic/atraumatic. EYES: Normal reaction of pupils, equal size. Conjunctiva pink, sclera white. NOSE: Clear with pink turbinates. THROAT: No erythema or exudates. NECK: No masses, no JVD, no thyroid enlargement, no adenopathy. CHEST: No chest wall deformity. Symmetrical expansion. LUNGS: Equal air entry with diffuse scattered crackles CVS: Regular rate and rhythm, normal S1 and S2, no gallops, no murmurs, no rubs ABDOMEN: Soft, nontender. No hepatosplenomegaly, normal bowel sounds, no guarding or rigidity. EXTREMITIES: No clubbing, no edema, no cyanosis, 2+ pulses and upper and lower extremities. MUSCULOSKELETAL: Muscle strength and tone normal. SPINE: No scoliosis or deformity SKIN: No rashes CENTRAL NERVOUS SYSTEM: No focal deficits, tone is normal in all 4 extremities. PSYCHIATRIC: Alert and oriented -1. Appropriate affect. - Labs CBC & Chem 7: 07/17/21 08:08 07/17/21 08:08 Labs: Abnormal Lab Results - Last 24 Hours (Table) 07/16/21 07/16/21 07/16/21 Range/Units 08:51 08:51 17:02 WBC (4.50-10.00) X 10*3/uL RBC (4.40-5.60) X 10*6/uL Hgb (13.0-17.0) g/dL Hct (39.6-50.0) % MCHC (32.0-37.0) g/dL Immature Gran # (0.00-0.04) X 10*3/uL Neutrophils # (1.80-7.70) X 10*3/uL Lymphocytes # (0.90-5.00) X 10*3/uL Monocytes # (0.20-1.00) X 10*3/uL Eosinophils # (0.04-0.35) X 10*3/uL Fibrinogen (200-500) mg/dL D-Dimer (<0.60) mg/L FEU Carbon Dioxide (20.0-27.5) mmol/L BUN (9.0-27.0) mg/dL BUN/Creatinine Ratio (12.00-20.00) Ratio Glucose (70-110) mg/dL POC Glucose (mg/dL) 330 H (75-99) mg/dL Hemoglobin A1c 9.9 H (0.0-6.0) % Calcium (8.7-10.3) mg/dL Ferritin 863.0 H (22.0-322.0) ng/mL C-Reactive Protein (0.00-0.80) mg/dL Total Protein (6.2-8.2) g/dL Albumin (3.8-4.9) g/dL Albumin/Globulin Ratio (1.60-3.17) g/dL Urine Protein (Negative) Urine Glucose (UA) (Negative) Hyaline Casts (0-2) /lpf Urine Mucus (None) /hpf 07/16/21 07/16/21 07/17/21 Range/Units 18:35 19:48 02:34 WBC (4.50-10.00) X 10*3/uL RBC (4.40-5.60) X 10*6/uL Hgb (13.0-17.0) g/dL Hct (39.6-50.0) % MCHC (32.0-37.0) g/dL Immature Gran # (0.00-0.04) X 10*3/uL Neutrophils # (1.80-7.70) X 10*3/uL Lymphocytes # (0.90-5.00) X 10*3/uL Monocytes # (0.20-1.00) X 10*3/uL Eosinophils # (0.04-0.35) X 10*3/uL Fibrinogen (200-500) mg/dL D-Dimer (<0.60) mg/L FEU Carbon Dioxide (20.0-27.5) mmol/L BUN (9.0-27.0) mg/dL BUN/Creatinine Ratio (12.00-20.00) Ratio Glucose (70-110) mg/dL POC Glucose (mg/dL) 385 H 297 H (75-99) mg/dL Hemoglobin A1c (0.0-6.0) % Calcium (8.7-10.3) mg/dL Ferritin (22.0-322.0) ng/mL C-Reactive Protein (0.00-0.80) mg/dL Total Protein (6.2-8.2) g/dL Albumin (3.8-4.9) g/dL Albumin/Globulin Ratio (1.60-3.17) g/dL Urine Protein 2+ H (Negative) Urine Glucose (UA) 4+ H (Negative) Hyaline Casts 4 H (0-2) /lpf Urine Mucus Rare H (None) /hpf 07/17/21 07/17/21 07/17/21 Range/Units 07:04 08:08 08:08 WBC 17.01 H (4.50-10.00) X 10*3/uL RBC 4.21 L (4.40-5.60) X 10*6/uL Hgb 11.5 L (13.0-17.0) g/dL Hct 36.4 L (39.6-50.0) % MCHC 31.6 L (32.0-37.0) g/dL Immature Gran # 0.20 H (0.00-0.04) X 10*3/uL Neutrophils # 15.23 H (1.80-7.70) X 10*3/uL Lymphocytes # 0.40 L (0.90-5.00) X 10*3/uL Monocytes # 1.16 H (0.20-1.00) X 10*3/uL Eosinophils # 0 L (0.04-0.35) X 10*3/uL Fibrinogen 651 H (200-500) mg/dL D-Dimer 0.73 H (<0.60) mg/L FEU Carbon Dioxide (20.0-27.5) mmol/L BUN (9.0-27.0) mg/dL BUN/Creatinine Ratio (12.00-20.00) Ratio Glucose (70-110) mg/dL POC Glucose (mg/dL) 294 H (75-99) mg/dL Hemoglobin A1c (0.0-6.0) % Calcium (8.7-10.3) mg/dL Ferritin (22.0-322.0) ng/mL C-Reactive Protein (0.00-0.80) mg/dL Total Protein (6.2-8.2) g/dL Albumin (3.8-4.9) g/dL Albumin/Globulin Ratio (1.60-3.17) g/dL Urine Protein (Negative) Urine Glucose (UA) (Negative) Hyaline Casts (0-2) /lpf Urine Mucus (None) /hpf 07/17/21 07/17/21 Range/Units 08:08 11:31 WBC (4.50-10.00) X 10*3/uL RBC (4.40-5.60) X 10*6/uL Hgb (13.0-17.0) g/dL Hct (39.6-50.0) % MCHC (32.0-37.0) g/dL Immature Gran # (0.00-0.04) X 10*3/uL Neutrophils # (1.80-7.70) X 10*3/uL Lymphocytes # (0.90-5.00) X 10*3/uL Monocytes # (0.20-1.00) X 10*3/uL Eosinophils # (0.04-0.35) X 10*3/uL Fibrinogen (200-500) mg/dL D-Dimer (<0.60) mg/L FEU Carbon Dioxide 17.5 L (20.0-27.5) mmol/L BUN 30.4 H (9.0-27.0) mg/dL BUN/Creatinine Ratio 27.64 H (12.00-20.00) Ratio Glucose 330 H (70-110) mg/dL POC Glucose (mg/dL) 324 H (75-99) mg/dL Hemoglobin A1c (0.0-6.0) % Calcium 8.1 L (8.7-10.3) mg/dL Ferritin 744.0 H (22.0-322.0) ng/mL C-Reactive Protein 7.70 H (0.00-0.80) mg/dL Total Protein 4.9 L (6.2-8.2) g/dL Albumin 2.6 L (3.8-4.9) g/dL Albumin/Globulin Ratio 1.13 L (1.60-3.17) g/dL Urine Protein (Negative) Urine Glucose (UA) (Negative) Hyaline Casts (0-2) /lpf Urine Mucus (None) /hpf Microbiology - Last 24 Hours (Table) 07/15/21 20:25 Blood Culture - Preliminary Blood No Growth after 24 hours Assessment and Plan Assessment: 1 Acute hypoxic respiratory failure related to acute COVID-19 infection, chest x-ray showing no acute pulmonary process. Patient presented to the hospital on 07/15/2021, he tested positive for COVID-19 on 07/08/2021, patient is not vaccinated against COVID-19. He is outside the window for Remdesivir, he is currently on Decadron, lactic Lovenox, multivitamins, and supportive treatment 2 Elevated pro-calcitonin level, rule out possibility of bacterial infection, chest x-ray showing no acute process 3 Dehydration, acute kidney injury, patient is receiving gentle IV hydration 4 Elevated inflammatory markers related to acute COVID-19 infection 5 Hypertension 6 Coronary artery disease with previous history of bypass grafting 7 Diabetes mellitus type 2 8 Hyperlipidemia 9 History of peripheral vascular disease with previous right iliac stent place ment 10 History of depression 11 Former smoker 12 Dementia Plan: The patient was seen and evaluated Currently stable from the pulmonary standpoint On 2 L nasal cannula Continue Lovenox, Decadron, vitamin supplement Titrate down the FiO2 as tolerated We will continue to follow I, the cosigning physician, performed a history & physical examination of the patient. Lungs sounds with few by basilar crackles. Maintaining good O2 saturations in the 90s on 2 L/m per nasal cannula. I discussed the assessment and plan of care with my nurse practitioner, Linda Fong. I attest to the above note as dictated by her.
[2021-07-17 16:34] LABS: Glucose,Whole Blood 233 mg/dL (75-99)
[2021-07-17 20:02] LABS: Glucose,Whole Blood 200 mg/dL (75-99)
[2021-07-17] MEDS: QUEtiapine 25 MG TAB PO SCH (21:05)
[2021-07-17] MEDS: ATORVASTATIN 40 MG TAB PO SCH (21:05)
[2021-07-18] MEDS: ENOXAPARIN 40 MG/0.4 ML SYRINGE SQ SCH (00:09)
[2021-07-18 05:20] LABS: Glucose,Whole Blood 210 mg/dL (75-99)
[2021-07-18] MEDS: SODIUM CHLORIDE 0.9% 1,000 ML IV SCH (07:50)
[2021-07-18 09:00] LABS: Glucose,Whole Blood 193 mg/dL (75-99)
[2021-07-18] MEDS: INSULIN DETEMIR (LEVEMIR) 100 UNIT/ML SYR SQ SCH (09:05)
[2021-07-18] MEDS: INSULIN ASPART (NovoLOG) 100 UNIT/ML VIAL SQ SCH ×4 (09:05→21:16)
[2021-07-18] MEDS: DULoxetine HCL 30 MG CAPSULE.DR PO SCH (09:05)
[2021-07-18] MEDS: DONEPEZIL 5 MG TAB PO SCH (09:05)
[2021-07-18] MEDS: dexAMETHasone 2 MG TAB PO SCH (09:06)
[2021-07-18] MEDS: carvediloL 12.5 MG TAB PO SCH (09:06)
[2021-07-18] MEDS: MEMANTINE 10 MG TAB PO SCH ×2 (09:06→21:16)
[2021-07-18 09:07] LABS: Basophils # (A) 0.02 X 10*3/uL (0.00-0.10); Basophils % (A) 0.2 %; Eosinophils # (A) 0.02 X 10*3/uL (0.04-0.35); Eosinophils % (A) 0.2 %; HCT 36.5 % (39.6-50.0); HGB 11.6 g/dL (13.0-17.0); Lymphocytes # (A) 0.72 X 10*3/uL (0.90-5.00); MCH 27.7 pg (27.0-32.0); MCHC 31.8 g/dL (32.0-37.0); MCV 87.1 fL (80.0-97.0); Monocytes # (A) 1.09 X 10*3/uL (0.20-1.00); Neutrophils # (A) 10.05 X 10*3/uL (1.80-7.70); Neutrophils % (A) 83.4 %; Platelet Count 387 X 10*3/uL (140-440); RBC 4.19 X 10*6/uL (4.40-5.60); RDW 14.4 % (11.5-14.5); WBC 12.05 X 10*3/uL (4.50-10.00)
[2021-07-18] MEDS: CHOLECALCIFEROL 125 MCG (5000 IU) TABLET PO SCH (09:07)
[2021-07-18] MEDS: amLODIPine 5 MG TAB PO SCH (09:07)
[2021-07-18] MEDS: ASPIRIN 81 MG PO SCH (09:07)
[2021-07-18] MEDS: CLOPIDOGREL 75 MG TAB PO SCH (09:07)
[2021-07-18] MEDS: ZINC SULFATE 220 MG CAP PO SCH (09:07)
[2021-07-18] MEDS: ASCORBIC ACID 500 MG TAB PO SCH (09:07)
[2021-07-18 09:27] LABS: C Reactive Protein 5.1 mg/dL (0.00-0.80); Magnesium 1.9 mg/dL (1.5-2.4)
[2021-07-18 09:41] LABS: African American GFR (CKD) 92.1 (60.0-200.0); Albumin 2.5 g/dL (3.8-4.9); Albumin/Globulin Ratio 1.07 (1.60-3.17); Anion Gap 11.3 mmol/L (10.00-18.00); BUN/Creat Ratio 20.13 Ratio (12.00-20.00); Blood Urea Nitrogen 18.5 mg/dL (9.0-27.0); Calcium 7.8 mg/dL (8.7-10.3); Globulin 2.3 g/dL (1.6-3.3); Non-African American GFR(CKD) 79.5 (60.0-200.0); Potassium 4.3 mmol/L (3.5-5.5); Total Bilirubin 0.4 mg/dL (0.30-1.20); Total Protein 4.9 g/dL (6.2-8.2)
[2021-07-18 11:18] LABS: Glucose,Whole Blood 165 mg/dL (75-99)
--- NOTE | 2021-07-18 12:17 | P.PN ---
Subjective Progress Note Date: 07/18/21 Pt has no complaints today. Is stable on room air. Objective - Vital Signs Vital signs: Vital Signs Temp 98.3 F 07/18/21 08:39 Pulse 70 07/18/21 08:39 Resp 17 07/18/21 08:39 BP 153/58 07/18/21 08:39 Pulse Ox 94 L 07/18/21 08:39 Intake & Output 07/17/21 07/18/21 07/18/21 18:59 06:59 18:59 Weight 81.647 kg Other: Voiding Method Diaper Diaper Diaper Incontinent # Voids 3 2 - Exam Gen: awake, alert HEENT: normocephalic, atraumatic, good hearing acuity, moist mucous membranes Resp: good air exchange, breathing comfortably with no accessory muscle use CVS: good distal perfusion x 4, GI: soft, NTTP, ND : no SPT, no CVAT, wesley catheter not present MSK: no pitting edema, no clubbing Neuro: non-focal, moving all extremities Psych: cooperative, euthymic mood - Labs CBC & Chem 7: 07/18/21 06:18 07/18/21 06:18 Labs: Abnormal Lab Results - Last 24 Hours (Table) 07/17/21 07/17/21 07/17/21 Range/Units 08:08 16:31 20:01 WBC (4.50-10.00) X 10*3/uL RBC (4.40-5.60) X 10*6/uL Hgb (13.0-17.0) g/dL Hct (39.6-50.0) % MCHC (32.0-37.0) g/dL Immature Gran # (0.00-0.04) X 10*3/uL Neutrophils # (1.80-7.70) X 10*3/uL Lymphocytes # (0.90-5.00) X 10*3/uL Monocytes # (0.20-1.00) X 10*3/uL Eosinophils # (0.04-0.35) X 10*3/uL Fibrinogen (200-500) mg/dL D-Dimer (<0.60) mg/L FEU Carbon Dioxide 17.5 L (20.0-27.5) mmol/L BUN 30.4 H (9.0-27.0) mg/dL BUN/Creatinine Ratio 27.64 H (12.00-20.00) Ratio Glucose 330 H (70-110) mg/dL POC Glucose (mg/dL) 233 H 200 H (75-99) mg/dL Calcium 8.1 L (8.7-10.3) mg/dL Ferritin 744.0 H (22.0-322.0) ng/mL C-Reactive Protein 7.70 H (0.00-0.80) mg/dL Total Protein 4.9 L (6.2-8.2) g/dL Albumin 2.6 L (3.8-4.9) g/dL Albumin/Globulin Ratio 1.13 L (1.60-3.17) g/dL 07/18/21 07/18/21 07/18/21 Range/Units 05:19 06:18 06:18 WBC 12.05 H (4.50-10.00) X 10*3/uL RBC 4.19 L (4.40-5.60) X 10*6/uL Hgb 11.6 L (13.0-17.0) g/dL Hct 36.5 L (39.6-50.0) % MCHC 31.8 L (32.0-37.0) g/dL Immature Gran # 0.15 H (0.00-0.04) X 10*3/uL Neutrophils # 10.05 H (1.80-7.70) X 10*3/uL Lymphocytes # 0.72 L (0.90-5.00) X 10*3/uL Monocytes # 1.09 H (0.20-1.00) X 10*3/uL Eosinophils # 0.02 L (0.04-0.35) X 10*3/uL Fibrinogen (200-500) mg/dL D-Dimer (<0.60) mg/L FEU Carbon Dioxide 19.0 L (20.0-27.5) mmol/L BUN (9.0-27.0) mg/dL BUN/Creatinine Ratio 20.13 H (12.00-20.00) Ratio Glucose 142 H (70-110) mg/dL POC Glucose (mg/dL) 210 H (75-99) mg/dL Calcium 7.8 L (8.7-10.3) mg/dL Ferritin 575.0 H (22.0-322.0) ng/mL C-Reactive Protein 5.10 H (0.00-0.80) mg/dL Total Protein 4.9 L (6.2-8.2) g/dL Albumin 2.5 L (3.8-4.9) g/dL Albumin/Globulin Ratio 1.07 L (1.60-3.17) g/dL 07/18/21 07/18/21 07/18/21 Range/Units 06:18 08:58 11:15 WBC (4.50-10.00) X 10*3/uL RBC (4.40-5.60) X 10*6/uL Hgb (13.0-17.0) g/dL Hct (39.6-50.0) % MCHC (32.0-37.0) g/dL Immature Gran # (0.00-0.04) X 10*3/uL Neutrophils # (1.80-7.70) X 10*3/uL Lymphocytes # (0.90-5.00) X 10*3/uL Monocytes # (0.20-1.00) X 10*3/uL Eosinophils # (0.04-0.35) X 10*3/uL Fibrinogen 656 H (200-500) mg/dL D-Dimer 1.01 H (<0.60) mg/L FEU Carbon Dioxide (20.0-27.5) mmol/L BUN (9.0-27.0) mg/dL BUN/Creatinine Ratio (12.00-20.00) Ratio Glucose (70-110) mg/dL POC Glucose (mg/dL) 193 H 165 H (75-99) mg/dL Calcium (8.7-10.3) mg/dL Ferritin (22.0-322.0) ng/mL C-Reactive Protein (0.00-0.80) mg/dL Total Protein (6.2-8.2) g/dL Albumin (3.8-4.9) g/dL Albumin/Globulin Ratio (1.60-3.17) g/dL Microbiology - Last 24 Hours (Table) 07/15/21 20:25 Blood Culture - Preliminary Blood No Growth after 48 hours Assessment and Plan Assessment: Acute hypoxemic respiratory failure secondary to Covid 19, improving, now on room air Covid 19 -Admit inpatient, telemetry -Pulmonary consult -Oxygen when necessary -Dexamethasone -Vitamin C, D, zinc -Follow inflammatory markers -PT consult CAD Hypertension Hyperlipidemia Diabetes type 2 Peripheral vascular disease Depression Dementia -Home medications were reviewed and reconciled -Correctional insulin Patient is a full code DVT prophylaxis with Lovenox subcu
--- NOTE | 2021-07-18 15:28 | P.PN ---
Subjective Progress Note Date: 07/18/21 Principal diagnosis: Acute COVID-19 infection without pneumonia This 80-year-old white male patient with advanced dementia, who is a very poor historian, and prior history of cardiac disease, hyperlipidemia, hypertension, previous history of coronary artery bypass grafting surgery, diabetes mellitus, hyperlipidemia, former smoker, peripheral vascular disease with prior history of right iliac stent placement, and depression who was brought into the hospital on 07/15/2021 for evaluation of shortness of breath according to the ED documentation. Patient is very confused, he is not able to tell me what brought him to the hospital. However does not appear to be in any acute distress, he states his brought him in. He is only oriented 1, he did not know he was in the hospital, he is not able to tell me the exact date. He seems to have delayed verbal response to questioning, but he is awake, he is trying to feed himself. He denies being short of breath, he states that he does cough all the time. Denies any chest discomfort. Is currently on 2 L of oxygen his pulse ox is 96%, according to the ED documentation patient was complaining of ongoing worsening shortness of breath, fever chills, generalized weakness over the past 2 weeks, according to the patient was diagnosed with COVID-19 on 07/08/2021, he is non-vaccinated for COVID-19, his breathing became much worse, he was very weak and unable to walk, she was not eating well. Chest x-ray in emergency department showed chronic changes without acute pulmonary process. COVID-19 PCR was positive, influenza A and B PCR were negative, his white count was 11.7, hemoglobin was 13.0, fibrinogen level was 844, d-dimer was 1.5, sodium is 133, potassium is 4.7, CO2 is 20, BUN is 34 creatinine is 1.35, lactic acid was 1.3. LFTs are within normal limits, LDH was 937, CRP was 20.8, troponin was less than 0.012, pro calcitonin level was 0.55. Patient is outside the window for Remdesivir, he was started on Decadron 6 mg daily, he is on prophylactic Lovenox 40 mg daily, he was given gentle IV hydration with 500 mL IV fluid bolus in the emergency department, his maintenance IV fluids infusing at rate of 75 ML per hour. Blood culture has been sent and is pending. Patient did have a low- grade fever overnight with a temp of 100.9F. He is afebrile this morning, his appetite is clean, he is feeding himself. Lung sounds reveal scattered crackles, no rhonchi, no wheezing, patient denies any chest pain, abdomen is soft, denies any nausea, no diarrhea. The patient is seen today 07/17/2021 in follow-up on the regular medical floor. He is currently sitting up in bed. Awake and alert in no acute distress. He is somewhat disoriented to time and place. He does have a history of dementia that has been on the decline. The plan is for transfer to subacute rehabilitation on Monday. Presently he is 98% O2 saturation on 2 L however he does drop to 84% on room air. He is continued on Decadron, Lovenox, vitamin supplements. Dopplers of the lower extremities revealed no evidence of DVT. White count 17.0. Hemoglobin 11.5. D-dimer 0.73. Sodium 136. Potassium 4.9. Creatinine 1.1. Glucose 3:30. AST 22. ALT 20. On the 07/18/2021 patient seen in follow-up on medical surgical floor, he is resting comfortably in bed, room air pulse ox is 94%, he denies any difficulty breathing, lung sounds do reveal some scattered crackles, no cough, no cognitive chest discomfort, patient is a poor historian, however he denies any dyspnea, denies any cough, denies any pulmonary symptoms, no fever or chills. Vital signs have been stable, breathing is nonlabored, he currently remains on dexamet hasone 6 mg daily, he is on prophylactic Lovenox, multivitamins. His lower extremity Dopplers were negative for DVT. Today's labs have been reviewed, his white blood cell count is improved and is down to 12.05, hemoglobin is 11.6, d- dimer is 1.01, electrolytes and renal profile are unremarkable, his ferritin level is improved and is down to 575, his LDH level is still pending, CRP is improved and is down to 5.10. His pro calcitonin level was mildly elevated at 0.55, urinalysis had shown no evidence of infection. Objective - Vital Signs Vital signs: Vital Signs Temp 98.3 F 07/18/21 12:39 Pulse 68 07/18/21 12:39 Resp 18 07/18/21 12:39 BP 148/75 07/18/21 12:39 Pulse Ox 94 L 07/18/21 12:39 Intake & Output 07/17/21 07/18/21 07/18/21 18:59 06:59 18:59 Weight 81.647 kg Other: Voiding Method Diaper Diaper Diaper Incontinent # Voids 3 2 - Exam GENERAL EXAM: Alert, confused 80-year-old patient, only oriented to self, resting comfortably, currently on room air with pulse ox of 94%, patient is a poor historian related to his underlying history of dementia, but appears comfortable in no apparent distress. HEAD: Normocephalic/atraumatic. EYES: Normal reaction of pupils, equal size. Conjunctiva pink, sclera white. NOSE: Clear with pink turbinates. THROAT: No erythema or exudates. NECK: No masses, no JVD, no thyroid enlargement, no adenopathy. CHEST: No chest wall deformity. Symmetrical expansion. LUNGS: Equal air entry with diffuse scattered crackles CVS: Regular rate and rhythm, normal S1 and S2, no gallops, no murmurs, no rubs ABDOMEN: Soft, nontender. No hepatosplenomegaly, normal bowel sounds, no guarding or rigidity. EXTREMITIES: No clubbing, no edema, no cyanosis, 2+ pulses and upper and lower extremities. MUSCULOSKELETAL: Muscle strength and tone normal. SPINE: No scoliosis or deformity SKIN: No rashes CENTRAL NERVOUS SYSTEM: No focal deficits, tone is normal in all 4 extremities. PSYCHIATRIC: Alert and oriented -1. Appropriate affect. - Labs CBC & Chem 7: 07/18/21 06:18 07/18/21 06:18 Labs: Abnormal Lab Results - Last 24 Hours (Table) 07/17/21 07/17/21 07/18/21 Range/Units 16:31 20:01 05:19 WBC (4.50-10.00) X 10*3/uL RBC (4.40-5.60) X 10*6/uL Hgb (13.0-17.0) g/dL Hct (39.6-50.0) % MCHC (32.0-37.0) g/dL Immature Gran # (0.00-0.04) X 10*3/uL Neutrophils # (1.80-7.70) X 10*3/uL Lymphocytes # (0.90-5.00) X 10*3/uL Monocytes # (0.20-1.00) X 10*3/uL Eosinophils # (0.04-0.35) X 10*3/uL Fibrinogen (200-500) mg/dL D-Dimer (<0.60) mg/L FEU Carbon Dioxide (20.0-27.5) mmol/L BUN/Creatinine Ratio (12.00-20.00) Ratio Glucose (70-110) mg/dL POC Glucose (mg/dL) 233 H 200 H 210 H (75-99) mg/dL Calcium (8.7-10.3) mg/dL Ferritin (22.0-322.0) ng/mL C-Reactive Protein (0.00-0.80) mg/dL Total Protein (6.2-8.2) g/dL Albumin (3.8-4.9) g/dL Albumin/Globulin Ratio (1.60-3.17) g/dL 07/18/21 07/18/21 07/18/21 Range/Units 06:18 06:18 06:18 WBC 12.05 H (4.50-10.00) X 10*3/uL RBC 4.19 L (4.40-5.60) X 10*6/uL Hgb 11.6 L (13.0-17.0) g/dL Hct 36.5 L (39.6-50.0) % MCHC 31.8 L (32.0-37.0) g/dL Immature Gran # 0.15 H (0.00-0.04) X 10*3/uL Neutrophils # 10.05 H (1.80-7.70) X 10*3/uL Lymphocytes # 0.72 L (0.90-5.00) X 10*3/uL Monocytes # 1.09 H (0.20-1.00) X 10*3/uL Eosinophils # 0.02 L (0.04-0.35) X 10*3/uL Fibrinogen 656 H (200-500) mg/dL D-Dimer 1.01 H (<0.60) mg/L FEU Carbon Dioxide 19.0 L (20.0-27.5) mmol/L BUN/Creatinine Ratio 20.13 H (12.00-20.00) Ratio Glucose 142 H (70-110) mg/dL POC Glucose (mg/dL) (75-99) mg/dL Calcium 7.8 L (8.7-10.3) mg/dL Ferritin 575.0 H (22.0-322.0) ng/mL C-Reactive Protein 5.10 H (0.00-0.80) mg/dL Total Protein 4.9 L (6.2-8.2) g/dL Albumin 2.5 L (3.8-4.9) g/dL Albumin/Globulin Ratio 1.07 L (1.60-3.17) g/dL 07/18/21 07/18/21 Range/Units 08:58 11:15 WBC (4.50-10.00) X 10*3/uL RBC (4.40-5.60) X 10*6/uL Hgb (13.0-17.0) g/dL Hct (39.6-50.0) % MCHC (32.0-37.0) g/dL Immature Gran # (0.00-0.04) X 10*3/uL Neutrophils # (1.80-7.70) X 10*3/uL Lymphocytes # (0.90-5.00) X 10*3/uL Monocytes # (0.20-1.00) X 10*3/uL Eosinophils # (0.04-0.35) X 10*3/uL Fibrinogen (200-500) mg/dL D-Dimer (<0.60) mg/L FEU Carbon Dioxide (20.0-27.5) mmol/L BUN/Creatinine Ratio (12.00-20.00) Ratio Glucose (70-110) mg/dL POC Glucose (mg/dL) 193 H 165 H (75-99) mg/dL Calcium (8.7-10.3) mg/dL Ferritin (22.0-322.0) ng/mL C-Reactive Protein (0.00-0.80) mg/dL Total Protein (6.2-8.2) g/dL Albumin (3.8-4.9) g/dL Albumin/Globulin Ratio (1.60-3.17) g/dL Microbiology - Last 24 Hours (Table) 07/15/21 20:25 Blood Culture - Preliminary Blood No Growth after 48 hours Assessment and Plan Plan: Assessment: #1. Acute hypoxic respiratory failure related to acute COVID-19 infection, chest x-ray showing no acute pulmonary process. Patient presented to the hospital on 07/15/2021, he tested positive for COVID-19 on 07/08/2021, patient is not vaccinated against COVID-19. He is outside the window for Remdesivir, he is currently on Decadron, lactic Lovenox, multivitamins, and supportive keyla tment #2. Elevated pro-calcitonin level, rule out possibility of bacterial infection, chest x-ray showing no acute process #3. Dehydration, acute kidney injury, patient is receiving gentle IV hydration #4. Elevated inflammatory markers related to acute COVID-19 infection #5. Hypertension #6. Coronary artery disease with previous history of bypass grafting #7. Diabetes mellitus type 2 #8. Hyperlipidemia #9. History of peripheral vascular disease with previous right iliac stent plac ement #10. History of depression #11. Former smoker #12. Dementia Plan: Patient denies any pulmonary symptoms No worsening dyspnea or cough he is on room air maintaining stable O2 saturations No fever or chills Today's labs have been noted Continue prophylactic Lovenox and Decadron Lower extremity Dopplers were negative for DVT Inflammatory markers are improving Increase activity as tolerated Recommend discharge in the next 24 hours if remains stable continues to improve possibly to ECF I performed a history & physical examination of the patient and discussed their management with my nurse practitioner, Sera Mena. I reviewed the nurse practitioner's note and agree with the documented findings and plan of care. Lung sounds are positive for diffuse crackles throughout the lung oro. The findings and the impression was discussed with the patient. I attest to the documentation by the nurse practitioner. Time with Patient: Less than 30
[2021-07-18 16:32] LABS: Glucose,Whole Blood 208 mg/dL (75-99)
[2021-07-18 20:13] LABS: Glucose,Whole Blood 273 mg/dL (75-99)
[2021-07-18] MEDS: ATORVASTATIN 40 MG TAB PO SCH (21:16)
[2021-07-18] MEDS: QUEtiapine 25 MG TAB PO SCH (21:16)
[2021-07-19] MEDS: ENOXAPARIN 40 MG/0.4 ML SYRINGE SQ SCH (01:17)
[2021-07-19 04:15] LABS: Glucose,Whole Blood 180 mg/dL (75-99)
[2021-07-19 06:46] LABS: Glucose,Whole Blood 151 mg/dL (75-99)
[2021-07-19] MEDS: INSULIN DETEMIR (LEVEMIR) 100 UNIT/ML SYR SQ SCH (09:08)
[2021-07-19] MEDS: INSULIN ASPART (NovoLOG) 100 UNIT/ML VIAL SQ SCH ×2 (09:08→12:14)
[2021-07-19] MEDS: DONEPEZIL 5 MG TAB PO SCH (09:09)
[2021-07-19] MEDS: CHOLECALCIFEROL 125 MCG (5000 IU) TABLET PO SCH (09:09)
[2021-07-19] MEDS: carvediloL 12.5 MG TAB PO SCH (09:10)
[2021-07-19] MEDS: ASCORBIC ACID 500 MG TAB PO SCH (09:10)
[2021-07-19] MEDS: dexAMETHasone 2 MG TAB PO SCH (09:10)
[2021-07-19] MEDS: CLOPIDOGREL 75 MG TAB PO SCH (09:10)
[2021-07-19] MEDS: amLODIPine 5 MG TAB PO SCH (09:10)
[2021-07-19] MEDS: ASPIRIN 81 MG PO SCH (09:10)
[2021-07-19] MEDS: MEMANTINE 10 MG TAB PO SCH (09:10)
[2021-07-19] MEDS: DULoxetine HCL 30 MG CAPSULE.DR PO SCH (09:10)
[2021-07-19] MEDS: ZINC SULFATE 220 MG CAP PO SCH (09:10)
[2021-07-19 09:37] VITALS: BP 164/75; PULSE 67; RESP 17; TEMP 98
--- NOTE | 2021-07-19 10:50 | P.DS ---
Providers Date of admission: 07/16/21 02:30 Expected date of discharge: 07/19/21 Attending physician: Eboni Funez MD Consults: 07/15/21 22:34 Consult Physician Urgent Consulting Provider: Chata Sigala Consult Reason/Comments: COVID-19 with hypoxemia Do you want consulting provider notified?: Yes Primary care physician: [facility] Course: Acute hypoxemic respiratory failure secondary to Covid 19, improving, now on room air Covid 19 -Admitted inpatient, telemetry. Pulmonary consulted for management. CXR demonstrating chronic changes without obvious evidence of COVID. Oxygen was provided when necessary, but pt improve back to room air. He was treated with dexamethasone, Vit C/D, Zinc. PT consult recommended SNF for rehab on discha rge. Pt will f/u with PCP. CAD Hypertension Hyperlipidemia Diabetes type 2 Peripheral vascular disease Depression Dementia -Home medications were reviewed and reconciled, no changes made on discharge, but dexamethasone and Vit C/D, Zinc were prescribed for COVID I spent 40 minutes coordinating this complex discharge. Assessment: Gen: awake, alert HEENT: normocephalic, atraumatic, good hearing acuity, moist mucous membranes Resp: good air exchange, breathing comfortably with no accessory muscle use CVS: good distal perfusion x 4, GI: soft, NTTP, ND : no SPT, no CVAT, wesley catheter not present MSK: no pitting edema, no clubbing Neuro: non-focal, moving all extremities Psych: cooperative, euthymic mood Patient Condition at Discharge: Good Plan - Discharge Summary Discharge Rx Participant: No New Discharge Prescriptions: New dexAMETHasone ORAL [Hexadrol] 6 mg PO DAILY tab Zinc Sulfate [Orazinc] 220 mg PO DAILY cap Acetaminophen Tab [Tylenol] 650 mg PO Q4HR PRN tab PRN Reason: Fever>101 Ascorbic Acid [Vitamin C] 1,000 mg PO DAILY tab Cholecalciferol [Vitamin D3 (125 Mcg = 5000 Iu)] 125 mcg PO DAILY tablet Continue Clopidogrel [Plavix] 75 mg PO DAILY tab Nitroglycerin Sl Tabs [Nitrostat] 0.4 mg SUBLINGUAL Q5M PRN tab PRN Reason: Chest Pain DULoxetine HCL [Cymbalta] 30 mg PO DAILY amLODIPine [Norvasc] 5 mg PO DAILY Memantine [Namenda] 10 mg PO BID Aspirin EC [Ecotrin Low Dose] 81 mg PO DAILY Insulin Glargine [Lantus Vial] 26 unit SQ AC-SUPPER Insulin Glargine [Lantus Vial] 32 unit SQ AC-BRKFST Donepezil [Aricept] 5 mg PO DAILY Atorvastatin [Lipitor] 40 mg PO HS Dulaglutide [Trulicity] 0.75 mg SQ SA QUEtiapine [SEROquel] 25 mg PO HS Omeprazole 20 mg PO DAILY Lisinopril [Prinivil] 10 mg PO DAILY carvediloL [Coreg*] 12.5 mg PO DAILY Discharge Medication List Clopidogrel [Plavix] 75 mg PO DAILY tab 08/13/18 [Rx] Nitroglycerin Sl Tabs [Nitrostat] 0.4 mg SUBLINGUAL Q5M PRN tab 08/13/18 [Rx] DULoxetine HCL [Cymbalta] 30 mg PO DAILY 09/27/18 [History] amLODIPine [Norvasc] 5 mg PO DAILY 09/27/18 [History] Aspirin EC [Ecotrin Low Dose] 81 mg PO DAILY 07/15/21 [History] Atorvastatin [Lipitor] 40 mg PO HS 07/15/21 [History] Donepezil [Aricept] 5 mg PO DAILY 07/15/21 [History] Dulaglutide [Trulicity] 0.75 mg SQ SA 07/15/21 [History] Insulin Glargine [Lantus Vial] 26 unit SQ AC-SUPPER 07/15/21 [History] Insulin Glargine [Lantus Vial] 32 unit SQ AC-BRKFST 07/15/21 [History] Lisinopril [Prinivil] 10 mg PO DAILY 07/15/21 [History] Memantine [Namenda] 10 mg PO BID 07/15/21 [History] Omeprazole 20 mg PO DAILY 07/15/21 [History] QUEtiapine [SEROquel] 25 mg PO HS 07/15/21 [History] carvediloL [Coreg*] 12.5 mg PO DAILY 07/15/21 [History] Acetaminophen Tab [Tylenol] 650 mg PO Q4HR PRN tab 07/19/21 [Rx] Ascorbic Acid [Vitamin C] 1,000 mg PO DAILY tab 07/19/21 [Rx] Cholecalciferol [Vitamin D3 (125 Mcg = 5000 Iu)] 125 mcg PO DAILY tablet 07/19/21 [Rx] Zinc Sulfate [Orazinc] 220 mg PO DAILY cap 07/19/21 [Rx] dexAMETHasone ORAL [Hexadrol] 6 mg PO DAILY tab 07/19/21 [Rx] Follow up Appointment(s)/Referral(s): Mike Ballesteros MD [Primary Care Provider] - 1-2 days Patient Instructions/Handouts: Coronavirus Disease 2019 (COVID-19) Discharge Disposition: TRANSFER TO SNF/ECF
[2021-07-19 11:31] LABS: Glucose,Whole Blood 178 mg/dL (75-99)
== END 2021-07-19 16:09 | DRG 177 ==
LOC: EC 19:42 → 4SSUR 07-16 02:30
PROVIDERS: ADMIT Internal Medicine; ATTEND Internal Medicine
PROC: 3E0F7SF Introduction of Other Gas into Respiratory Tract, Via Natural or Artificial Opening (ICD-10-PCS; principal; 2021-07-16)
DX: U07.1 COVID-19 (principal); J12.82 Pneumonia due to coronavirus disease 2019; J96.01 Acute respiratory failure with hypoxia; I47.2 Ventricular tachycardia; N17.9 Acute kidney failure, unspecified; E11.40 Type 2 diabetes mellitus with diabetic neuropathy, unspecified; K57.90 Diverticulosis of intestine, part unspecified, without perforation or abscess without bleeding; M19.90 Unspecified osteoarthritis, unspecified site; E11.51 Type 2 diabetes mellitus with diabetic peripheral angiopathy without gangrene; E78.5 Hyperlipidemia, unspecified; E86.0 Dehydration; F03.90 Unspecified dementia, unspecified severity, without behavioral disturbance, psychotic disturbance, mood disturbance, and anxiety; F32.A Depression, unspecified; I10 Essential (primary) hypertension; I25.10 Atherosclerotic heart disease of native coronary artery without angina pectoris; Z79.02 Long term (current) use of antithrombotics/antiplatelets; Z79.4 Long term (current) use of insulin; Z79.82 Long term (current) use of aspirin; Z79.899 Other long term (current) drug therapy; Z82.3 Family history of stroke; Z82.49 Family history of ischemic heart disease and other diseases of the circulatory system; Z83.3 Family history of diabetes mellitus; Z87.891 Personal history of nicotine dependence; Z95.1 Presence of aortocoronary bypass graft; Z95.5 Presence of coronary angioplasty implant and graft; Z95.820 Peripheral vascular angioplasty status with implants and grafts; Z98.41 Cataract extraction status, right eye
CPT/HCPCS: 36415; 71045; 80053; 81001; 82728; 83036; 83605; 83615; 83735; 84145; 84484; 85025; 85379; 85384; 86140; 87040; 87502; 87635; 93005; 93970; 96361; 96374; 99291